=== PATIENT | female | born 1960 | race African-American/Black ===

== ENCOUNTER 2024-06-01 13:04 | Outpatient (AMB) | payer OTHER, SELFPAY ==
--- NOTE | 2024-06-01 13:10 | HO.NEPHOV ---
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 Required: No Accompanied by: Self / Same As Patient Allergies ciprofloxacin [CIPROFLOXACIN] Allergy (Severe, Verified 06/01/24 13:42) SEIZURE hydromorphone [HYDROMORPHONE] Allergy (Intermediate, Verified 06/01/24 13:42) SWELLING HANDS,THROAT aspirin [ASPIRIN] Allergy (Mild, Verified 06/01/24 13:42) NAUSEA,BLEEDING mesalamine [From Asacol] Allergy (Mild, Verified 06/01/24 13:42) HIVES morphine [Morphine] Allergy (Mild, Verified 06/01/24 13:42) HIVES Penicillins Allergy (Mild, Verified 06/01/24 13:42) HIVES codeine Allergy (Verified 06/01/24 13:46) Unknown Opioids - Morphine Analogues Allergy (Verified 06/01/24 13:46) Unknown HPI Comments Details: I had the privilege of seeing Heidi in follow-up of her chronic kidney disease and hypertension. She has a diabetic with history of hypertension. She is on Farxiga. He is not on any KELVIN inhibitor or ARB. She is known to have proteinuria. She does not have any coronary artery disease, CVA, congestive heart failure, renal artery stenosis or peripheral arterial disease. She denies any joint swellings, epistaxis, skin rashes, hematuria, edema or orthostatic symptoms. She avoids nonsteroidal anti-inflammatories and maintain good hydration. Her serum creatinine has been fairly stable lately. [facility] Medical History (Updated 06/01/24 @ 13:15 by Zackary Guido MD) Hypertension Chronic kidney disease, stage 3a Surgical History Hx of appendectomy Family History Mother Diabetes Social History Alcohol intake: never Patient Tobacco Use Status: Former Tobacco user Use of substances other than those prescribed or required for medical reasons: No Review of Systems Const All systems reviewed & are unremarkable except as noted in HPI and below Physical Exam Vital Signs: Last Vital Signs Pulse 84 06/01/24 13:40 BP 132/72 06/01/24 13:40 Pulse Ox 95 06/01/24 13:40 Oxygen Delivery Method Room Air 06/01/24 13:40 BMI result Body Mass Index 33.3 Const General: comfortable and no acute distress Orientation/consciousness: patient oriented x3 HEENT Head: Yes normocephalic Mouth: Normal oral and palatal mucosa present Eyes EOM: EOMs intact bilaterally Neck Neck: Yes supple Resp Auscultation: clear to auscultation bilaterally Cardio Jugular venous distension: no JVD Rate: regular rate GI Palpation (GI): Soft to palpation Auscultation: normal bowel sounds General: Yes no CVA tenderness Back/Spine/Pelvis Back: no CVA tenderness Skin General skin exam: no rashes or lesions noted Neuro General: patient oriented x3 and moves all extremities Extrem General: Yes no pedal edema Results Reviewed Nephrology Results: No Data to Display Assessment & Plan Assessment & Plan (1) Stage 3b chronic kidney disease: Code(s): N18.32 - Chronic kidney disease, stage 3b Category: Medical (2) Hypertension: Code(s): I10 - Essential (primary) hypertension Category: Medical Qualifiers: Hypertension type: primary hypertension Qualified Code(s): I10 - Essential (primary) hypertension (3) Secondary hyperparathyroidism (of renal origin): Code(s): N25.81 - Secondary hyperparathyroidism of renal origin Category: Medical (4) Proteinuria: Code(s): R80.9 - Proteinuria, unspecified Category: Medical Qualifiers: Proteinuria type: other Qualified Code(s): R80.8 - Other proteinuria Plan Heidi has progressive renal dysfunction with her current serum creatinine qualify her for stage III B CKD. She is not on any KELVIN inhibitor or ARB. Her blood pressure is at goal on current medications. She avoids nonsteroidal anti-inflammatories. She is tolerating Farxiga. She never had a renal biopsy about which she always had been resistant. She likely will need activated vitamin-D soon. I did not make any medication changes today. She was encouraged to maintain good hydration and avoid nonsteroidal inflammatories. All questions answered. Follow-up appointment given. Orders: Orders Protein Creatinine Ratio, Ur 3 Months I10 - Essential (primary) hypertension, N18.32 - Chronic kidney disease, stage 3b, N25.81 - Secondary hyperparathyroidism of renal origin, R80.8 - Other proteinuria Electrolytes 3 Months I10 - Essential (primary) hypertension, N18.32 - Chronic kidney disease, stage 3b, N25.81 - Secondary hyperparathyroidism of renal origin, R80.8 - Other proteinuria Blood Urea Nitrogen 3 Months I10 - Essential (primary) hypertension, N18.32 - Chronic kidney disease, stage 3b, N25.81 - Secondary hyperparathyroidism of renal origin, R80.8 - Other proteinuria Immunofixation Pnl, Serum 3 Months I10 - Essential (primary) hypertension, N18.32 - Chronic kidney disease, stage 3b, N25.81 - Secondary hyperparathyroidism of renal origin, R80.8 - Other proteinuria Parathyroid Hormone Intact 3 Months I10 - Essential (primary) hypertension, N18.32 - Chronic kidney disease, stage 3b, N25.81 - Secondary hyperparathyroidism of renal origin, R80.8 - Other proteinuria Complete Blood Count Auto Diff 3 Months I10 - Essential (primary) hypertension, N18.32 - Chronic kidney disease, stage 3b, N25.81 - Secondary hyperparathyroidism of renal origin, R80.8 - Other proteinuria Calcium 3 Months I10 - Essential (primary) hypertension, N18.32 - Chronic kidney disease, stage 3b, N25.81 - Secondary hyperparathyroidism of renal origin, R80.8 - Other proteinuria Creatinine 3 Months I10 - Essential (primary) hypertension, N18.32 - Chronic kidney disease, stage 3b, N25.81 - Secondary hyperparathyroidism of renal origin, R80.8 - Other proteinuria Coding Level of Care Code Est Pt Level 4 (46697) Diagnoses Stage 3b chronic kidney disease N18.32 Primary hypertension I10 Hypertension type: primary hypertension Secondary hyperparathyroidism (of renal origin) N25.81 Other proteinuria R80.8 Proteinuria type: other
[2024-06-01 13:40] VITALS: BP 132/72; PULSE 84; O2SAT 95; BMI 33.3
== END 2024-06-01 13:59 | disposition home or self-care (01) ==
PROVIDERS: PCP Internal Medicine; Visit Provider Internal Medicine Nephrology
DX: N18.32 Chronic kidney disease, stage 3b (principal); I10 Essential (primary) hypertension; N25.81 Secondary hyperparathyroidism of renal origin; R80.8 Other proteinuria
CPT/HCPCS: 99214

== ENCOUNTER → 2024-06-01 13:04 | Outpatient (BNVA) | payer OTHER, SELFPAY | PROVIDERS: PCP Internal Medicine; Visit Provider Internal Medicine Nephrology | DX: I12.9 Hypertensive chronic kidney disease with stage 1 through stage 4 chronic kidney disease, or unspecified chronic kidney disease (principal); N18.32 Chronic kidney disease, stage 3b; N25.81 Secondary hyperparathyroidism of renal origin; R80.8 Other proteinuria | CPT/HCPCS: 99212 ==

== ENCOUNTER 2024-09-07 13:10 | Outpatient (AMB) | payer OTHER, SELFPAY ==
[2024-09-07 13:34] VITALS: BP 130/70; PULSE 80; O2SAT 98; BMI 34.9
--- NOTE | 2024-09-07 13:34 | HO.NEPHOV_ITS ---
Vital Signs 09/07/24 13:34 Height 5 ft 4 in Weight 203 lb 8 oz BMI 34.9 BP 130/70 Blood Pressure Location Lt brachial Position Sitting Pulse 80 Pulse Source Pulse Oximeter Pulse Oximetry (%) 98 Oxygen Delivery Method Room Air Intake Visit Reasons: Continuing care- CKD- Conf Special Librarian Required: No Accompanied by: Self / Same As Patient Allergies ciprofloxacin [CIPROFLOXACIN] Allergy (Severe, Verified 09/07/24 13:36) SEIZURE hydromorphone [HYDROMORPHONE] Allergy (Intermediate, Verified 09/07/24 13:36) SWELLING HANDS,THROAT aspirin [ASPIRIN] Allergy (Mild, Verified 09/07/24 13:36) NAUSEA,BLEEDING mesalamine [From Asacol] Allergy (Mild, Verified 09/07/24 13:36) HIVES morphine [Morphine] Allergy (Mild, Verified 09/07/24 13:36) HIVES Penicillins Allergy (Mild, Verified 09/07/24 13:36) HIVES codeine Allergy (Verified 09/07/24 13:36) Unknown Opioids - Morphine Analogues Allergy (Verified 09/07/24 13:36) Unknown HPI Comments Details: Heidi was seen in follow-up of her chronic kidney disease and hypertension. She has a diabetic with history of hypertension. She is on Farxiga. He is not on any KELVIN inhibitor or ARB. She is known to have proteinuria. She does not have any coronary artery disease, CVA, congestive heart failure, renal artery stenosis or peripheral arterial disease. She denies any joint swellings, epistaxis, skin rashes, hematuria, edema or orthostatic symptoms. She avoids nonsteroidal anti-inflammatories and maintain good hydration. Her serum creatinine has been fairly stable lately FOR[facility], [facility] Medical History (Updated 06/01/24 @ 13:15 by Zackary Guido MD) Hypertension Chronic kidney disease, stage 3a Surgical History Hx of appendectomy Family History Mother Diabetes Social History Alcohol intake: never Patient Tobacco Use Status: Former Tobacco user Review of Systems Const All systems reviewed & are unremarkable except as noted in HPI and below Physical Exam Const General: comfortable and no acute distress Orientation/consciousness: patient oriented x3 HEENT Head: Yes normocephalic Mouth: Normal oral and palatal mucosa present Eyes EOM: EOMs intact bilaterally Neck Neck: Yes supple Resp Auscultation: clear to auscultation bilaterally Cardio Jugular venous distension: no JVD Rate: regular rate GI Palpation (GI): Soft to palpation Auscultation: normal bowel sounds General: Yes no CVA tenderness Back/Spine/Pelvis Back: no CVA tenderness Skin General skin exam: no rashes or lesions noted Neuro General: patient oriented x3 and moves all extremities Extrem General: Yes no pedal edema Results Reviewed Nephrology Results: No Data to Display Assessment & Plan Assessment & Plan (1) Stage 3b chronic kidney disease: Code(s): N18.32 - Chronic kidney disease, stage 3b Category: Medical (2) Hypertension: Code(s): I10 - Essential (primary) hypertension Category: Medical Qualifiers: Hypertension type: primary hypertension Qualified Code(s): I10 - Essential (primary) hypertension (3) Secondary hyperparathyroidism (of renal origin): Code(s): N25.81 - Secondary hyperparathyroidism of renal origin Category: Medical Plan Heidi has progressive renal dysfunction with her current serum creatinine qualify her for stage III B CKD. She is not on any KELVIN inhibitor or ARB. Her blood pressure is at goal on current medications. She avoids nonsteroidal anti- inflammatories. She is tolerating Farxiga. She never had a renal biopsy about which she always had been resistant. She likely will need activated vitamin-D soon. I did not make any medication changes today. She was encouraged to maintain good hydration and avoid nonsteroidal inflammatories. All questions answered. Follow-up appointment given Orders: Orders Creatinine 4 Months I10 - Essential (primary) hypertension, N18.32 - Chronic kidney disease, stage 3b, N25.81 - Secondary hyperparathyroidism of renal origin Blood Urea Nitrogen 4 Months I10 - Essential (primary) hypertension, N18.32 - Chronic kidney disease, stage 3b, N25.81 - Secondary hyperparathyroidism of renal origin Electrolytes 4 Months I10 - Essential (primary) hypertension, N18.32 - Chronic kidney disease, stage 3b, N25.81 - Secondary hyperparathyroidism of renal origin Protein Creatinine Ratio, Ur 4 Months I10 - Essential (primary) hypertension, N18.32 - Chronic kidney disease, stage 3b, N25.81 - Secondary hyperparathyroidism of renal origin Parathyroid Hormone Intact 4 Months I10 - Essential (primary) hypertension, N18.32 - Chronic kidney disease, stage 3b, N25.81 - Secondary hyperparathyroidism of renal origin Coding Level of Care Code Est Pt Level 4 (67433) Diagnoses Stage 3b chronic kidney disease N18.32 Primary hypertension I10 Hypertension type: primary hypertension Secondary hyperparathyroidism (of renal origin) N25.81
== END 2024-09-07 13:47 | disposition home or self-care (01) ==
LOC: HO.HKAS 13:10
PROVIDERS: PCP Internal Medicine; Visit Provider Internal Medicine Nephrology
DX: N18.32 Chronic kidney disease, stage 3b (principal); I10 Essential (primary) hypertension; N25.81 Secondary hyperparathyroidism of renal origin
CPT/HCPCS: 99214

== ENCOUNTER → 2024-09-07 13:10 | Outpatient (BNVA) | payer OTHER, SELFPAY | PROVIDERS: PCP Internal Medicine; Visit Provider Internal Medicine Nephrology | DX: I12.9 Hypertensive chronic kidney disease with stage 1 through stage 4 chronic kidney disease, or unspecified chronic kidney disease (principal); E11.22 Type 2 diabetes mellitus with diabetic chronic kidney disease; N18.32 Chronic kidney disease, stage 3b; N25.81 Secondary hyperparathyroidism of renal origin | CPT/HCPCS: 99212 ==

== ENCOUNTER 2025-02-22 14:01 | Outpatient (REF) | payer OTHER, SELFPAY ==
--- OUTSIDE RECORDS SUMMARY | 2025-02-22 17:19 | XMS_ITS ---
[facility] Address [address] [place] [address] Care Team Providers Care Immigration Attorney Name Role Phone Keily Samuel MD Primary Care Provider UnavailRikki Montenegro Unavailable [phone] Allergies Allergen (clinical drug ingredient) Drug/Non Drug [...] ONE TABLE T BY MOUTH EVERY DAY Oral for 30 Active Amantadine HCl 100 MG Oral for 60 Active Farxiga 5 MG Oral for 30 Unkno wn Melatonin 10 MG Oral for 30 Un known Gabapentin 300 MG TAKE ONE CAPSULE BY MOUTH TWICE A DAY Oral for 30 Active risperiDONE 2 MG TAKE ONE TABLET BY M OUTH TWICE A DAY Oral for 30 Active Tradjenta 5 MG TAKE ONE TABLET BY M OUTH EVERY DAY Oral for 30 Active Metoprolol Succinate ER 50 MG Oral for 90 Unknown Vitamin B-1 100 MG TAKE ONE TABLET BY M OUTH EVERY DAY Oral for 30 Active traZODone HCl 150 MG TAKE 1-2 TABLETS BY MOUTH AT BEDTIME, NEEDED FOR INSOMNIA Oral for 30 Active Multivitamin - TAKE ONE TABLET BY M OUTH EVERY DAY Oral for 30 Active Omeprazole 20 MG TAKE ONE CAPSULE BY MOUTH EVERY DAY Oral for 30 Active Atorvastatin Calcium 40 MG TAKE ONE TABL ET BY MOUTH EVERY DAY Oral for 30 Active Mirtazapine 7.5 MG TAKE ONE TABLET BY M OUTH EVERY DAY AT BEDTIME Oral for 30 Active Cephalexin 500 MG Oral for 10 Unknown Albuterol Sulfate HFA 108 (90 Base) MCG/ACT 1 puff as needed Inhalation every 4 hrs Active Creon 6000-21907 UNIT Oral for 30 Active Folic Acid 1 MG Oral for 30 Ac tive Metoprolol Tartrate 50 MG Oral for 90 Active Social History Tobacco Use: Social [...] 08/03/2024 Encounters Encounter Location Date Provider Diagnosis [facility] [address] 08/03/2024 Rikki Lewis Plan Of Treatment No Information Progress Notes * KIAH CalixtoHenriettaOB: (64 yo F)Acc No.[id number]:08/03/2024 Progress Notes Patient:?Heidi DUPONT Provider:?Rikki Lewis DPM :1960???Age:64 Y???Sex:Female D ate:08/03/2024 Address:[address] [place] [address], [facility] [id number] Pcp:Keily Samuel MD Subjective: * Chief Complaints: * ??? * ROS:?General/Constitutional:?Nausea?denies.?Vomiting?denies.?Hunger Thirst?denies.?Loss appetite?denies.?Chills?denies.?Fatigue?denies.?Fever?denies.?Night Sweats?denies.?Unexplained weight loss?denies.?Unexplained weight gain?denies.?HEENTM:?Dentures?denies.?Dizziness?denies.?Glasses/contacts?admits.?Retinopathy?de nies.?Blurred/double vision?denies.?TMJ?denies.?Discharge/drainage?denies.?Implants?denies.?Sore throat?denies.?Dental implants?denies.?Hard of hearing ?denies.?Difficulty chewing/swallowing/speaking?denies.?Nose bleeds?denies.?Sore mouth?denies.?Respiratory:?On Oxygen?denies.?Pneumonia/pleurisy?denies.?Bronchitis?denies.?Emphysema?denies.?C oughing?denies.?Cough blood?denies.?Shortness of breath?denies.?Wheezing?denies.?Cardiovascular:?Pacemaker?denies.?MVP?denies.?WPW?denies.?CHF?denies.?Heart attack?denies.?Septal defect?denies.?Rapid beat?denies.?Chest pain ?denies.?Atrial Fib.?denies.?Murmur/Palpitations?denies.?Gastrointestinal:?Hemorrhoids?denies.?Stomach/Abdominal pain?denies.?Dark blood stool?denies.?Irritable bowel ?denies.?Constipation?denies.?Diarrhea?denies.?Hematology:?Swelling?denies.?Clots?denies.?Varicose Veins?denies.?Bruising?denies.?Bleeding problem?denies.?Genitourinary:?Blood urine?denies.?Frequent/Painfu/urination/bladder control?denies.?Kidney stones?denies.?Infection (UTI)?denies.?Nephropathy?denies.?sex trans dis (STD)?denies.?Prostate?denies.?Musculoskeletal:?Hammertoes?denies.?Bunions?denies.?Back Pain?admits.?Muscle Cramps/ Resting?denies.?Muscle cramps / walking?denies.?Generalized aches and pains?denies.?Weakness?denies.?Integ.:?Maguire?denies.?Scars?denies.?Corns/calluses?denies.?Ingrown nails?admits.?Painful nails?denies.?Open Sores?denies.?Rashes?denies.?Neurologic:?Difficulty sleeping?denies.?Brain disorder?denies.?Numbness?denies.?Balance trouble?denies.?Confusion?denies.?Fainting/blackouts?denies.?Tingling?denies.?Tr emors?denies.? * Medical History:?Asthma, Rosie betic, Hiatal hernia, Kidney disease, Psychiatric disorder, Measles. * Family History:?Mother: dece ased, diagnosed with Diabetic - NIDDM, Unspecified essential hypertension.?Father: .? * Social History:?Tobacco Use:?Tobacco Use/Smoking?Are you a:?former smoker ?Additional Findings: Tobacco Non-User?Current non-smoker ???Drugs/Alcohol:?Drugs?Have you used drugs other than those for medical reasons in the past 12 months??No ?Alcohol Screen?Did you have a drink containing alcohol in the past year??No ?Points?0 ?Interpretation?Negative ???Miscellaneous:?Caffeine: yes, frequency:. ?Exercise: yes, walking. ?Marital status: . ?Occupation: unemployed. * Medications:?Taking Albutero l Sulfate HFA 108 (90 Base) MCG/ACT Aerosol Solution 1 puff as needed Inhalation every 4 hrs , Taking Creon [id number] UNIT Capsule Delayed Release Particles Oral , [...] Unknown Melatonin 10 MG Tablet Oral * Allergies:?[place] Aspirin, Di laudid, Ciprofloxacin, Codeine, Morphine, Penicillin. Objective: * Vitals:?Ht: 5 ft 4 in, Wt:17 0 lbs, BMI:29.18, Shoe size: 8, Ht-cm: 162.56 cm, Wt-k.11 kg. Assessment: Plan: * Treatment: * Images: * The named appointment provid er may or may not be the originator of this progress note, and it is not deemed complete until electronically signed by the appointment provider. Sign off status: Pending * Provider:?Rikki Lewis DPM Date:?2023 Generated for Tian cage/Giancarlo/Karen on:?02/22/2025 05:19 PM EDT
--- OUTSIDE RECORDS SUMMARY | 2025-02-22 17:19 | XMS_ITS | Patient Health Record ---
Author Organization [facility] Address [address] [place] [address] Care Team Providers Care Semiconductor Processing Technician Name Role Phone Keily Samuel MD Primary Care Provider Unavailab Rikki Jimenez Unavailable [phone] Black, Marylou Unavailable [phone] Allergies Allergen (clinical drug ingredient) Drug/Non Drug Allergy documented on EMR Reaction Allergy Type Onset Date Status aspirin Mercedez Aspirin Unknown Drug Allergy Act micheal hydromorphone Dilaudid Unknown Drug Allergy Act micheal ciprofloxacin Ciprofloxacin Unknown Drug Allergy Active codeine Codeine Unknown Drug Allergy Active morphine Morphine Unknown Drug Allergy Active Penicillin Unknown Drug Allergy Active Reason For Referral No Information Medications Medication SIG (Take, Route, Frequency, Duration) Notes Start Date End Date Status Multivitamin - TAKE ONE TABLET BY M OUTH EVERY DAY Oral for 30 Active amLODIPine Besylate 10 MG TAKE ONE TABLE T BY MOUTH EVERY DAY Oral for 30 Active Omeprazole 20 MG TAKE ONE CAPSULE BY MOUTH EVERY DAY Oral for 30 Active risperiDONE 2 MG TAKE ONE TABLET BY M OUTH TWICE A DAY Oral for 30 Active Tradjenta 5 MG TAKE ONE TABLET BY M OUTH EVERY DAY Oral for 30 Active Amantadine HCl 100 MG Oral for 60 Active Atorvastatin Calcium 40 MG TAKE ONE TABL ET BY MOUTH EVERY DAY Oral for 30 Active Farxiga 5 MG Oral for 30 Unkno wn Mirtazapine 7.5 MG TAKE ONE TABLET BY M OUTH EVERY DAY AT BEDTIME Oral for 30 Active Melatonin 10 MG Oral for 30 Un known Cephalexin 500 MG Oral for 10 Unknown Albuterol Sulfate HFA 108 (90 Base) MCG/ACT 1 puff as needed Inhalation every 4 hrs Active Metoprolol Succinate ER 50 MG Oral for 90 Unknown Creon [id number] UNIT Oral for 30 Active Vitamin B-1 100 MG TAKE ONE TABLET BY M OUTH EVERY DAY Oral for 30 Active Folic Acid 1 MG Oral for 30 Ac tive traZODone HCl 150 MG TAKE 1-2 TABLETS BY MOUTH AT BEDTIME, NEEDED FOR INSOMNIA Oral for 30 Active Metoprolol Tartrate 50 MG Oral for 90 Active Gabapentin 300 MG TAKE ONE CAPSULE BY MOUTH TWICE A DAY Oral for 30 Active Social History Tobacco Use: Social History Observation Description Date Details (start date - stop date) Former Smoker NA - NA Tobacco Use/Smoking Question Answer Notes Are you a: former smoker Additional Findings: Tobacco Non-User Current no n-smoker Alcohol Screen Question Answer Notes Did you have a drink containing alcohol in the p ast year? No Points 0 Interpretation Negative Encounters Encounter Location Date Provider Diagnosis [facility] [address] 04/15/2024 [facility] [address] [facility] [address] 04/19/2024 [facility] [address] 04/27/2024 Rikki Lewis [facility] [address] 06/28/2024 Rikki Lewis Plan Of Treatment No Information Insurance Providers Payer Name Payer Address Payer Phone Subscriber Number Group Number Insured Name Patient Relationship to Insured Coverage Start Date Coverage End Date [facility] [employer] Claims [address] [place] [id number] Heidi Latif Self - patient is the insured Medical (General) History Medical History History ICD Code asthma Diabetic Hiatal hernia Kidney disease Psychiatric disorder Measles
--- OUTSIDE RECORDS SUMMARY | 2025-02-22 17:20 | XMS_ITS | Clinical Summary ---
Author Organization [facility] Address [address] [place] [address] Phone Care Team Providers Care Research Chemical Engineer Name Role Phone Physician, Pcp Unknown Primary Care Provider Jeaneth vailable Allergies Active Allergy Reactions Criticality Noted Date Comments Morphine (Pf) Rash Medium 11/03/2024 Penicillins Rash Medium 11/03/2024 Medications amantadine (SYMMETREL) 100 mg capsule Take 1 capsule (100 mg total) by mouth every other day. Active folic acid (FOLVITE) 1 mg tablet Take 1 tablet (1,000 mcg total) by mouth 1 (one) time each day. Active Creon 6,000-19,000 -30,000 unit capsule Take 2 capsules (12,000 Units total) by mouth 3 (three) times a day with meals. Active melatonin 10 mg tablet Take 1 tablet (10 mg total) by mouth at bedtime. 10/20/2024 Active metoprolol succinate (TOPROL-XL) 50 mg 24 hr tablet Take 1 tablet (50 mg total) by mouth 1 (one) time each day. 10/09/2024 Active mirtazapine (REMERON) 15 mg tablet Take 0.5 tablets (7.5 mg total) by mouth at bedtime. 11/21/2022 Active multivitamin tablet Take 1 tablet by mouth 1 (one) time each day. 10/09/2024 Active omeprazole (PriLOSEC) [address] capsule Take 1 capsule (20 mg total) by mouth 1 (one) time each day. Active risperiDONE (RisperDAL) 2 mg tablet Take 1 tablet (2 mg total) by mouth 2 (two) times a day. Active thiamine mononitrate, vit B1, 100 mg tablet Take 1 tablet (100 mg total) by mouth 1 (one) time each day. 10/09/2024 Active traZODone (DESYREL) 150 mg tablet Take 1 tablet (150 mg total) by mouth at bedtime. Active gabapentin (NEURONTIN) 300 mg capsule Take 1 capsule (300 mg total) by mouth 2 (two) times a day. 10/20/2024 Active aspirin 81 mg EC tablet Take 1 tablet (81 mg total) by mouth 1 (one) time each day. 11/10/2024 11/10/19 26 Active insulin glargine (LANTUS) 100 unit/mL injection Inject 30 Units under the skin at bedtime. 11/09/2024 11/09/20 25 Active Admelog U-100 insulin lispro 100 unit/mL injection Inject 7 Units under the skin 3 (three) times a day with meals. -Administer within 15 minutes of a meal 11/09/2024 Active Admelog U-100 insulin lispro 100 unit/mL injection Inject 2-12 Units under the skin 3 (three) times a day before meals. -Administer within 15 minutes of a meal 11/09/2024 11/09/20 25 Active Active Problems No known active problems Resolved Problems Problem Noted Date Diagnosed Date Resolved Date Cerebrovascular accident (CV A), unspecified mechanism ([facility] V24, [facility] V28) 11/06/2024 TIA (transient ischemic attack) 11/03/2024 11/09/2024 Encounters Date Type Department Care Team Description 11/26/2024 Lab Requisition [facility] - Main Lab [address] [facility] [place] [address] Winsome Asher MD Cerebral infarction, unspecified ([facility] V24, [facility] V28) from Last 3 Months Medical History Medical History Date Comments HTN (hypertension) DM (diabetes mellitus) ([facility] V24, [facility] V28 ) Hyperlipidemia Asthma Asthma Depression Social History Tobacco Use Types Packs/Day Years Used Date Smoking Tobacco: Never Smokeless Tobacco: Current Tobacco Cessation:Ready to Q uit: Not Asked; Counseling Given: Not Answered Alcohol Use Standard Drinks/Week Comments Never 0 (1 standard drink = 0.6 oz pur e alcohol) Interpersonal Safety Answer Date Record ed Physical Abuse 11/04/2024 Verbal Abuse 11/04/2024 Comments Unknown Sex and Gender Information Value Date Recorded Sex Assigned at Not on file Legal Sex Female 8:37 PM EST Gender Identity Not on file Sexual Orientation Not on file Obstetrics History Last Filed Vital Signs Vital Sign Reading Time Taken Comments Blood Pressure 159/87 11/09/2024 8:12 AM EST Pulse 83 11/09/2024 8:12 AM EST Temperature 36.3 ??C (97.3 ??F) 11/09/2024 8:12 AM ES T Respiratory Rate 15 11/09/2024 8:12 AM EST Oxygen Saturation 97% 11/09/2024 8:12 AM EST Inhaled Oxygen Concentration - - Weight 77.1 kg (170 lb) 11/03/2024 1:52 PM EST Height 162.6 cm (5' 4 ) 11/03/2024 1:52 PM EST Body Mass Index 29.18 11/03/2024 1:52 PM EST Plan of Treatment Health Maintenance Due Date Last Done Comments Breast Cancer Screening 1961 Diabetes: Annual Foot Exam 1971 Diabetes: Annual Retina Eye Exam 1971 Pneumococcal Vaccine: 50+ Years (1 of 2 - PCV) 1980 Pneumococcal Vaccine: Pediatrics (0 to 5 Years) and At-Risk Patients (6 to 64 Years) (1 of 2 - PCV) 1980 Cervical Cancer Screening: Pap Smear 1982 Zoster Vaccines (1 of 2) 2011 RSV Immunization Adult Patients (1 - Risk 60-74 years 1-dose series) 2021 Colorectal Cancer Screening: Colonoscopy 10/12/2022 Depression Screening 10/12/2022 HIV Screening 10/12/2022 Hepatitis C Screening 10/12/2022 Medicare Annual Wellness Visit 10/12/2022 Social Influencers of Health Screening 10/12/2022 COVID-19 Vaccine ( season) 2024 11/09/2021, 03/24/2021, 03/03/2021 Diabetes: Annual Urine Albumin-Creatinine Ratio (uACR) 11/03/2024 Diabetes: Blood Sugar Control Test (HGBA1C) 05/04/2025 11/03/2024 Influenza Vaccine (Season Ended) 2025 11/18/2023, 09/17/2022, 10/23/2021, Additional history exists Diabetes: Annual GFR (Glomerular Filtration Rate) 11/22/2025 11/22/2024, 11/15/2024, 11/11/2024, Additional history exists Hypertension/CHF/CAD Annual BMP Blood Test 11/22/2025 11/22/2024, 11/15/2024, 11/11/2024, Additional history exists Cholesterol Screening (Lipid Panel) 11/03/2029 11/03/2024 DTaP,Tdap,and Td Vaccines (2 - Td or Tdap) 12/06/2029 12/06/2019 HIB Vaccines Aged Out No longer eligi ble based on patient's age to complete this topic HPV Vaccines Aged Out No longer eligi ble based on patient's age to complete this topic Hepatitis A Vaccines Aged Out No long er eligible based on patient's age to complete this topic Hepatitis B Vaccines Aged Out No long er eligible based on patient's age to complete this topic IPV Vaccines Aged Out No longer eligi ble based on patient's age to complete this topic MMR Vaccines Aged Out No longer eligi ble based on patient's age to complete this topic Meningococcal ACWY Vaccine Aged Out N o longer eligible based on patient's age to complete this topic Meningococcal B Vaccine Aged Out No l onger eligible based on patient's age to complete this topic RSV Immunization Patients Under 20 months Aged Out No longer eligible based on patient's age to complete this topic Varicella Vaccines Aged Out No longer eligible based on patient's age to complete this topic Procedures Procedure Name Priority Date/Time Associated Diagnosis Comments BASIC METABOLIC PANEL Routine 11/22/2024 6:48 AM EST Cerebral infarction, unspecified (CMS/HCC) HEMOGLOBIN A1C Add-On 11/03/2024 2:15 PM EST LIPID PANEL WITH REFLEX TO DIRECT LDL Add-On 11/03/2024 2:15 PM EST from Last 3 Months or Most Recently Relevant to Health Maintenance Results * (ABNORMAL) Basic metabolic panel (11/22/2024 6:48 AM EST) Sodium 140 133 - 145 mmol/L LAB CHEMISTRY METHOD 11/22/2024 3:01 PM [facility] Potassium 4.4 3.5 - 5.5 mmol/L LAB CHEMISTRY METHOD 11/22/2024 3:01 PM [facility] Chloride 112(H) 96 - 110 mmol/L LAB CHEMISTRY METHOD 11/22/2024 3:01 PM [facility] CO2 22 21 - 32 mmol/L LAB CHEMISTRY METHOD 11/22/2024 3:01 PM [facility] Anion Gap 6 3 - 11 LAB CHEMISTRY METHOD 11/22/2024 3:01 PM [facility] Glucose 182(H) 70 - 100 mg/dL LAB CHEMISTRY METHOD 11/22/2024 3:01 PM [facility] BUN 33(H) 5 - 25 mg/dL LAB CHEMISTRY METHOD 11/22/2024 3:01 PM [facility] Creatinine 1.99(H) 0.50 - 1.10 mg/dL LAB CHEMISTRY METHOD 11/22/2024 3:01 PM [facility] eGFR 28(L) >=60 mL/min/1. 73m2 LAB CHEMISTRY METHOD 11/22/2024 3:01 PM [facility] Comment:Calculation based on the??Chronic Kidney Disease Epidemiology Collaboration (CKD-EPI) equation refit??without adjustment for race. BUN/Creatinine Ratio 16.6 LAB CHEMISTRY METHOD 11/22/2024 3:01 PM [facility] Calcium 7.8(L) 8.5 - 10.5 mg/dL LAB CHEMISTRY METHOD 11/22/2024 3:01 PM [facility] Blood Venous blood specimen / Unknown Venipuncture / Unknown 11/22/2024 6:48 AM EST 11/22/2024 10:18 AM EST us Winsome Asher MD LAB BLOOD ORDERABLES Final Resul t [facility] [address] [place] [address], * (ABNORMAL) Lipid panel with reflex to direct LDL (11/03/2024 2:15 PM EST) Cholesterol 172 0 - 200 mg/dL LAB CHEMISTRY METHOD 11/03/2024 7:42 PM EST [facility] Triglycerides 320(H) 0 - 150 mg/dL LAB CHEMISTRY METHOD 11/03/2024 7:42 PM EST [facility] HDL 41 >=40 mg/dL LAB CHEMISTRY METHOD 11/03/2024 7:42 PM EST [facility] LDL Calculated 67 0 - 100 mg/dL LAB CHEMISTRY METHOD 11/03/2024 7:42 PM EST [facility] VLDL Cholesterol Jhon 64 mg/dL LAB CHEMISTRY METHOD 11/03/2024 7:42 PM EST [facility] Non HDL Chol. (LDL+VLDL) 131 <145 mg/dL LAB CHEMISTRY METHOD 11/03/2024 7:42 PM EST [facility] Chol/HDL Ratio 4.2 0.0 - 4.4 LAB CHEMISTRY METHOD 11/03/2024 7:42 PM EST [facility] Blood Venous blood specimen / Unknown Venipuncture / Unknown 11/03/2024 2:15 PM EST 11/03/2024 2:51 PM EST us Alexander Haque DO LAB BLOOD ORDERABLES Final R esult [facility] [address] [place] [address], [place] [phone] * (ABNORMAL) Hemoglobin A1c (11/03/2024 2:15 PM EST) Hemoglobin A1C 12.4(H) <6.5 % LAB CHEMISTRY METHOD 11/04/2024 2:10 PM EST [facility] Mean Bld Glu Estim. 309 mg/dL LAB CHEMISTRY METHOD 11/04/2024 2:10 PM EST [facility] Blood Venous blood specimen / Unknown Venipuncture / Unknown 11/03/2024 2:15 PM EST 11/03/2024 2:51 PM EST us Mando GE LAB BLOOD ORDERABLES Damaris mitchell Result [facility] [address] [place] [address], from Last 3 Months or Most Recently Relevant to Health Maintenance Insurance [facility] [place] MEDICARE Member Subscriber Plan / Payer (Ef fective 2019-Present) Name:Calixto Latifise Perla Relation to Subscriber:Self Name:Heidi Latif Payer ID:[id number] Group ID:[id number] Type:Not on file Address: [place] [address] [address] [phone] Advance Directives Documents on File Type Date Recorded Patient Sap Architect Expl anation Health Care Decision (hx) 07/22/2016 AD WINSTON DIRECTIVE Health Care Decision (hx) 07/22/2016 AD WINSTON DIRECTIVE Health Care Decision (hx) 07/22/2016 AD WINSTON DIRECTIVE * Full Code - Default (Latest Code Status on File) Date Activated Date Inactivated Comments 11/03/2024 5:50 PM 11/09/2024 4:10 PM This is or jamie is used when code status has not been discussed with the patient, or code status is otherwise unknown/unconfirmed To update the patient's code status, place a code status order. Do not modify or discontinue any currently active code status orders. Healthcare Agents on File Name Relationship Healthcare Agent Relationshi p Communication Anjum Villarreal Spouse Health Care Agent Care Teams Research Chemical Engineer Relationship Specialty Start Date End Date Physician, Pcp Unknown PCP - General 11/03/24
--- OUTSIDE RECORDS SUMMARY | 2025-02-22 17:20 | XMS_ITS | Patient Health Record ---
Author Organization [facility] Address [address] [place] [address] Support Name Relationship Address Phone RUTH DUPONT Guarantor Unknown [phone] Reason For Referral No Information Medications Medication SIG (Take, Route, Fr equency, Duration) Notes Start Date End Date Status Metoprolol Tartrate ORAL for -3 [facility] 11/07/2011 Active Vagifem 10MCG 1 Vaginal TWICE A WEEK for -3 [facility] 2011 Active Omeprazole 20MG ORAL for -3 [facility] 11/07/2011 A ctive Tab-A-Caren ORAL for -3 [facility] 11/07/2011 Active Problems Problem Type SNOMED Code ICD Code Onset Dates Problem Status W/U Status Risk Notes Problem Candidal vulvovaginitis (21322614) Candidiasis of vulva and vagina (112.1) Active confirmed Diag Problem 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 Major Problem Hyperlipidemia (03241930) Other and unspecified hyperlipidemia (272.4) Active confirmed Major Problem Essential hypertension (20130629) Unspecified essential hypertension (401.9) Active confirmed Major Problem Asthma (disorder) (134103108) Asthma, unspecified, unspecified status (493.90) Active confirmed Major Problem Menopausal symptom (65584739) Symptomatic menopausal or female climacteric states (627.2) Active confirmed Major Problem Gynecological examination normal (513526928245354) Routine gynecological examination (V72.31) Active confirmed Major Problem Screening for malignant neoplasm of colon (626137669) Special screening for malignant neoplasms, colon (V76.51) Active confirmed Major Plan Of Treatment No Information Insurance Providers Payer Name Payer Address Payer Phone Subscriber Number Group Number Insured Name Patient Relationship to Insured Coverage Start Date Coverage End Date MEDICARE [address] [facility] [place] [id number] RUTH DUPONT Self - patient is the insured
--- OUTSIDE RECORDS SUMMARY | 2025-02-22 17:20 | XMS_ITS ---
Author Organization [facility] Address [address] [place] [address] Care Team Providers Care Mechanical Commissioning Engineer Name Role Phone Lizzie RIVAS, Keily Primary Care Provider Unavailab Rikki Jimenez Unavailable [phone] Marylou Paz [phone] Encounters Encounter Location Date Provider Diagnosis [address] [address] 07/20/2024 Marylou Paz Plan Of Treatment No Information Progress Notes * Marry DUPONTOB: (64 yo F)Acc No.[id number]:07/20/2024 Progress Notes Patient:?Heidi DUPONT Provider:?Marylou Paz DPM :1960???Age:64 Y???Sex:Female D ate:07/20/2024 Address:[address], [place], [place] Pcp:Keily Samuel MD Subjective: * Chief Complaints: * ??? * Medical History:? Objective: * Vitals:? Assessment: Plan: * Treatment: * Images: * The named appointment provid er may or may not be the originator of this progress note, and it is not deemed complete until electronically signed by the appointment provider. Sign off status: Pending * Provider:?Marylou Paz DPM Date:?2023 Generated for Mingoi niles/Giancarlo/eTransmitting on:?02/22/2025 05:19 PM EDT
--- OUTSIDE RECORDS SUMMARY | 2025-02-22 17:20 | XMS_ITS | Encounter Summary ---
Author Organization [facility] Address [address] [place] [address] Care Team Providers Care Oxygen Plant Operator Name Role Phone Physician, Pcp Unknown Primary Care Provider Jeaneth vailable Encounter Details Date Type Department Care Team (Latest Contact Info) Description 11/11/2024 Lab Requisition [facility] - Main Lab [address] [facility] [place] [phone] Winsome Asher MD [address] [place] [address] Other cerebrovascular disease Social History Tobacco Use Types Packs/Day Years Used Date Smoking Tobacco: Never Smokeless Tobacco: Current Alcohol Use Standard Drinks/Week Comments Never 0 (1 standard drink = 0.6 oz pur e alcohol) Interpersonal Safety Answer Date Record ed Physical Abuse 11/04/2024 Verbal Abuse 11/04/2024 Comments Unknown Sex and Gender Information Value Date Recorded Sex Assigned at Not on file Legal Sex Female 8:37 PM EST Gender Identity Not on file Sexual Orientation Not on file documented as of this encounter Plan of Treatment Not on file documented as of this encounter Procedures Procedure Name Priority Date/Time Associated Diagnosis Comments COMPLETE BLOOD COUNT Routine 11/11/2024 6:29 AM EST Other cerebrovascular disease BASIC METABOLIC PANEL Routine 11/11/2024 6:29 AM EST Other cerebrovascular disease documented in this encounter Results * (ABNORMAL) Basic metabolic panel (11/11/2024 6:29 AM EST) Sodium 140 133 - 145 mmol/L LAB CHEMISTRY METHOD 11/11/2024 8:52 AM [facility] Potassium 4.8 3.5 - 5.5 mmol/L LAB CHEMISTRY METHOD 11/11/2024 8:52 AM [facility] Chloride 113(H) 96 - 110 mmol/L LAB CHEMISTRY METHOD 11/11/2024 8:52 AM [facility] CO2 24 21 - 32 mmol/L LAB CHEMISTRY METHOD 11/11/2024 8:52 AM [facility] Anion Gap 3 3 - 11 LAB CHEMISTRY METHOD 11/11/2024 8:52 AM [facility] Glucose 95 70 - 100 mg/dL LAB CHEMISTRY METHOD 11/11/2024 8:52 AM [facility] BUN 25 5 - 25 mg/dL LAB CHEMISTRY METHOD 11/11/2024 8:52 AM [facility] Creatinine 1.64(H) 0.50 - 1.10 mg/dL LAB CHEMISTRY METHOD 11/11/2024 8:52 AM [facility] eGFR 35(L) >=60 mL/min/1. 73m2 LAB CHEMISTRY METHOD 11/11/2024 8:52 AM [facility] Comment:Calculation based on the??Chronic Kidney Disease Epidemiology Collaboration (CKD-EPI) equation refit??without adjustment for race. BUN/Creatinine Ratio 15.2 LAB CHEMISTRY METHOD 11/11/2024 8:52 AM [facility] Calcium 8.0(L) 8.5 - 10.5 mg/dL LAB CHEMISTRY METHOD 11/11/2024 8:52 AM [facility] Blood Venous blood specimen / Unknown Venipuncture / Unknown 11/11/2024 6:29 AM EST 11/11/2024 8:17 AM EST us Winsome Asher MD LAB BLOOD ORDERABLES Final Resul t [facility] [address] [place] [address], * (ABNORMAL) Complete blood count (11/11/2024 6:29 AM EST) [facility] Signature WBC 5.7 4.8 - 10.8 K/mcL LAB HEMETOLOGY METHOD 11/11/2024 8:30 AM EST [facility] RBC 3.20(L) 3.80 - 4.80 M/mcL LAB HEMETOLOGY METHOD 11/11/2024 8:30 AM [facility] Hemoglobin 9.6(L) 11.5 - 16.0 g/dL LAB HEMETOLOGY METHOD 11/11/2024 8:30 AM [facility] Hematocrit 29.8(L) 35.0 - 47.0 % LAB HEMETOLOGY METHOD 11/11/2024 8:30 AM [facility] MCV 94.3 79.0 - 98.0 FL LAB HEMETOLOGY METHOD 11/11/2024 8:30 AM [facility] MCH 30.4 27.0 - 32.0 pcg LAB HEMETOLOGY METHOD 11/11/2024 8:30 AM [facility] MCHC 32.2 32.0 - 37.0 g/dL LAB HEMETOLOGY METHOD 11/11/2024 8:30 AM [facility] RDW 13.4 11.0 - 15.0 % LAB HEMETOLOGY METHOD 11/11/2024 8:30 AM [facility] Platelets 157 130 - 400 K/mcL LAB HEMETOLOGY METHOD 11/11/2024 8:30 AM [facility] MPV 12.6(H) 7.0 - 11.0 FL LAB HEMETOLOGY METHOD 11/11/2024 8:30 AM [facility] NRBC 0.4 <1.0 % LAB HEMETOLOGY METHOD 11/11/2024 8:30 AM EST [facility] NRBC Absolute 0.02 <0.10 K/mcL LAB HEMETOLOGY METHOD 11/11/2024 8:30 AM EST [facility] Blood Venous blood specimen / Unknown Venipuncture / Unknown 11/11/2024 6:29 AM EST 11/11/2024 8:17 AM EST us Winsome Asher MD LAB BLOOD ORDERABLES Final Resul t [facility] [address] [place] [address], documented in this encounter Visit Diagnoses Diagnosis Other cerebrovascular disease documented in this encounter Care Teams Oxygen Plant Operator Relationship Specialty Start Date End Date Physician, Pcp Unknown PCP - General 11/03/24 documented as of this encounter
--- OUTSIDE RECORDS SUMMARY | 2025-02-22 17:20 | XMS_ITS | Encounter Summary ---
Author Organization [facility] Address [address] [place] [address] Care Team Providers Care General Cargo Clerk Name Role Phone Physician, Pcp Unknown Primary Care Provider Jeaneth vailable Encounter Details Date Type Department Care Team (Late st Contact Info) Description 11/19/2024 Lab Requisition [facility] - Main Lab [address] [facility] [place] [phone] Winsome Asher MD [address] [place] [address] Cerebral infarction, unspecified (CMS/HCC V24, CMS/HCC V28) Social History Tobacco Use Types Packs/Day Years [...] Associated Diagnosis Comments COMPLETE BLOOD COUNT Routine 11/22/2024 6:48 AM EST Cerebral infarction, unspecified (CMS/HCC) BASIC METABOLIC PANEL Routine 11/22/2024 6:48 AM EST Cerebral infarction, unspecified (CMS/HCC) documented in this encounter Results * (ABNORMAL) Basic metabolic panel (11/22/2024 6:48 AM EST) Sodium 140 133 - 145 mmol/L LAB CHEMISTRY METHOD 11/22/2024 3:01 PM [facility] Potassium 4.4 3.5 - 5.5 mmol/L LAB CHEMISTRY METHOD 11/22/2024 3:01 PM [facility] Chloride 112(H) 96 - 110 mmol/L LAB CHEMISTRY METHOD 11/22/2024 3:01 PM [facility] CO2 22 21 - 32 mmol/L LAB CHEMISTRY METHOD 11/22/2024 3:01 PM [facility] Anion Gap 6 3 - 11 LAB CHEMISTRY METHOD 11/22/2024 3:01 PM [facility] Glucose 182(H) 70 - 100 mg/dL LAB CHEMISTRY METHOD 11/22/2024 3:01 PM [facility] BUN 33(H) 5 - 25 mg/dL LAB CHEMISTRY METHOD 11/22/2024 3:01 PM [facility] Creatinine 1.99(H) 0.50 - 1.10 mg/dL LAB CHEMISTRY METHOD 11/22/2024 3:01 PM [facility] eGFR 28(L) >=60 mL/min/1. 73m2 LAB CHEMISTRY METHOD 11/22/2024 3:01 PM [facility] Comment:Calculation based on the??Chronic Kidney Disease Epidemiology Collaboration (CKD-EPI) equation refit??without adjustment for race. BUN/Creatinine Ratio 16.6 LAB CHEMISTRY METHOD 11/22/2024 3:01 PM [facility] Calcium 7.8(L) 8.5 - 10.5 mg/dL LAB CHEMISTRY METHOD 11/22/2024 3:01 PM [facility] Blood Venous blood specimen / Unknown Venipuncture / Unknown 11/22/2024 6:48 AM EST 11/22/2024 10:18 AM EST us Winsome Asher MD LAB BLOOD ORDERABLES Final Resul t [facility] [address] [place] [address], [place] [phone] * (ABNORMAL) Complete blood count (11/22/2024 6:48 AM EST) WBC 5.2 4.8 - 10.8 K/mcL LAB HEMETOLOGY METHOD 11/22/2024 2:21 PM [facility] RBC 3.00(L) 3.80 - 4.80 M/mcL LAB HEMETOLOGY METHOD 11/22/2024 2:21 PM [facility] Hemoglobin 9.2(L) 11.5 - 16.0 g/dL LAB HEMETOLOGY METHOD 11/22/2024 2:21 PM [facility] Hematocrit 29.1(L) 35.0 - 47.0 % LAB HEMETOLOGY METHOD 11/22/2024 2:21 PM [facility] MCV 96.4 79.0 - 98.0 FL LAB HEMETOLOGY METHOD 11/22/2024 2:21 PM [facility] MCH 30.5 27.0 - 32.0 pcg LAB HEMETOLOGY METHOD 11/22/2024 2:21 PM [facility] MCHC 31.6(L) 32.0 - 37.0 g/dL LAB HEMETOLOGY METHOD 11/22/2024 2:21 PM [facility] RDW 14.0 11.0 - 15.0 % LAB HEMETOLOGY METHOD 11/22/2024 2:21 PM [facility] Platelets 155 130 - 400 K/mcL LAB HEMETOLOGY METHOD 11/22/2024 2:21 PM [facility] MPV 11.9(H) 7.0 - 11.0 FL LAB HEMETOLOGY METHOD 11/22/2024 2:[address] [facility] NRBC 0.4 <1.0 % LAB HEMETOLOGY METHOD 11/22/2024 2:[address] [facility] NRBC Absolute 0.02 <0.10 K/mcL LAB HEMETOLOGY METHOD 11/22/2024 2:[address] [facility] Blood Venous blood specimen / Unknown Venipuncture / Unknown 11/22/2024 6:48 AM EST 11/22/2024 10:18 AM EST us Winsome Asher MD LAB BLOOD ORDERABLES Final Resul t [facility] [address] [place] [address], documented in this encounter Visit Diagnoses Diagnosis Cerebral infarction, unspecified (CMS/HCC V24, CMS/HCC V28) documented in this encounter Care Teams General Cargo Clerk Relationship Specialty Start Date End Date Physician, Pcp Unknown PCP - General 11/03/24 documented as of this encounter
--- OUTSIDE RECORDS SUMMARY | 2025-02-22 17:20 | XMS_ITS | Encounter Summary ---
[facility] Address [address] [place] [address] Care Team Providers Care Foster Care Social Worker Name Role Phone Physician, Pcp Unknown Primary Care Provider Jeaneth vailable Encounter Details Date Type Department Care Team (Late st Contact Info) Description 11/15/2024 Lab Requisition [facility] - Main Lab [address] [facility] [place] [phone] Winsome Asher MD [address] [place] [address] Cerebral infarction, unspecified (CMS/HCC V24, CMS/HCC V28) [...] Associated Diagnosis Comments COMPLETE BLOOD COUNT Routine 11/15/2024 9:13 AM EST Cerebral infarction, unspecified (CMS/HCC) BASIC METABOLIC PANEL Routine 11/15/2024 9:13 AM EST Cerebral infarction, unspecified (CMS/HCC) documented in this encounter Results * (ABNORMAL) Basic metabolic panel (11/15/2024 9:13 AM EST) Sodium 140 133 - 145 mmol/L LAB CHEMISTRY METHOD 11/15/2024 2:57 PM [facility] Potassium 4.5 3.5 - 5.5 mmol/L LAB CHEMISTRY METHOD 11/15/2024 2:57 PM [facility] Chloride 113(H) 96 - 110 mmol/L LAB CHEMISTRY METHOD 11/15/2024 2:57 PM [facility] CO2 22 21 - 32 mmol/L LAB CHEMISTRY METHOD 11/15/2024 2:57 PM [facility] Anion Gap 5 3 - 11 LAB CHEMISTRY METHOD 11/15/2024 2:57 PM [facility] Glucose 146(H) 70 - 100 mg/dL LAB CHEMISTRY METHOD 11/15/2024 2:57 PM [facility] BUN 27(H) 5 - 25 mg/dL LAB CHEMISTRY METHOD 11/15/2024 2:57 PM [facility] Creatinine 1.59(H) 0.50 - 1.10 mg/dL LAB CHEMISTRY METHOD 11/15/2024 2:57 PM [facility] eGFR 36(L) >=60 mL/min/1. 73m2 LAB CHEMISTRY METHOD 11/15/2024 2:57 PM [facility] Comment:Calculation based on the??Chronic Kidney Disease Epidemiology Collaboration (CKD-EPI) equation refit??without adjustment for race. BUN/Creatinine Ratio 17.0 LAB CHEMISTRY METHOD 11/15/2024 2:57 PM [facility] Calcium 8.2(L) 8.5 - 10.5 mg/dL LAB CHEMISTRY METHOD 11/15/2024 2:57 PM [facility] Blood Venous blood specimen / Unknown 11/15/2024 9:13 AM EST 11/15/2024 1:07 PM EST us Winsome Asher MD LAB BLOOD ORDERABLES Final Resul t [facility] [address] [place] [address], * (ABNORMAL) Complete blood count (11/15/2024 9:13 AM EST) WBC 4.6(L) 4.8 - 10.8 K/mcL LAB HEMETOLOGY METHOD 11/15/2024 2:10 PM EST [facility] RBC 3.10(L) 3.80 - 4.80 M/mcL LAB HEMETOLOGY METHOD 11/15/2024 2:10 PM EST [facility] Hemoglobin 9.4(L) 11.5 - 16.0 g/dL LAB HEMETOLOGY METHOD 11/15/2024 2:10 PM [facility] Hematocrit 29.6(L) 35.0 - 47.0 % LAB HEMETOLOGY METHOD 11/15/2024 2:10 PM EST [facility] MCV 94.9 79.0 - 98.0 FL LAB HEMETOLOGY METHOD 11/15/2024 2:10 PM EST [facility] MCH 30.1 27.0 - 32.0 pcg LAB HEMETOLOGY METHOD 11/15/2024 2:10 PM EST [facility] MCHC 31.8(L) 32.0 - 37.0 g/dL LAB HEMETOLOGY METHOD 11/15/2024 2:10 PM EST [facility] RDW 13.7 11.0 - 15.0 % LAB HEMETOLOGY METHOD 11/15/2024 2:10 PM [facility] Platelets 174 130 - 400 K/mcL LAB HEMETOLOGY METHOD 11/15/2024 2:10 PM [facility] MPV 12.8(H) 7.0 - 11.0 FL LAB HEMETOLOGY METHOD 11/15/2024 2:10 PM EST [facility] NRBC 0.0 <1.0 % LAB HEMETOLOGY METHOD 11/15/2024 2:10 PM EST [facility] NRBC Absolute 0.00 <0.10 K/mcL LAB HEMETOLOGY METHOD 11/15/2024 2:10 PM EST [facility] Blood Venous blood specimen / Unknown Venipuncture / Unknown 11/15/2024 9:13 AM EST 11/15/2024 1:07 PM EST us Winsome Asher MD LAB BLOOD ORDERABLES Final Resul t [facility] [address] [place] [address], documented in this encounter Visit Diagnoses Diagnosis Cerebral infarction, unspecified (CMS/HCC V24, CMS/HCC V28) documented in this encounter Care Teams Foster Care Social Worker Relationship Specialty Start Date End Date Physician, Pcp Unknown PCP - General 11/03/24 documented as of this encounter
--- OUTSIDE RECORDS SUMMARY | 2025-02-22 17:20 | XMS_ITS | Encounter Summary ---
Author Organization [facility] Address [address] [place] [address] Care Team Providers Care Molder Hand Name Role Phone Physician, Pcp Unknown Primary Care Provider Jeaneth vailable Encounter Details Date Type Department Care Team (Late st Contact Info) Description 11/26/2024 Lab Requisition [facility] - Main Lab [address] [facility] [place] [address] Winsome Asher MD [address] [place] [address] Cerebral infarction, unspecified (CMS/HCC V24, CMS/HCC V28) [...] on file documented as of this encounter Visit Diagnoses Diagnosis Cerebral infarction, unspecified (CMS/HCC V24, CMS/HCC V28) documented in this encounter Care Teams Molder Hand Relationship Specialty Start Date End Date Physician, Pcp Unknown PCP - General 11/03/24 documented as of this encounter
--- OUTSIDE RECORDS SUMMARY | 2025-02-22 17:20 | XMS_ITS ---
Author Organization [facility] Care Team Providers Care Twill Cutter Name Role Phone Diana Kc Unavailable Unavailable Rosa M Thornton Unavailable Unavailable Winsome Asher Unavailable Unavailable Allyson Reid Unavailable Unavailable Jayesh Delcid Unavailable Unavailable Nat Puckett Unavailable Unavailable Allergies and adverse reactions Code CodeSystem Substance Reaction Severity StartDate Concern Status 7984 RXNORM Penicillin Unknown 09/19/2022 active 7052 RXNORM Morphine Unknown 09/19/2022 active 3423 RXNORM HYDROmorphone Unknown 09/19/2022 active 2670 RXNORM Codeine Unknown 09/19/2022 active 2551 RXNORM Ciprofloxacin Unknown 09/19/2022 active 1191 RXNORM Aspirin Unknown 09/19/2022 active Care Team Name Role Address Phone Organization Dates Winsome Asher PCP [address] [facility] [address], [place], [address], [place] (Office): [facility] 09/19/2022 - 09/24/2022 Diana Kc Attending Physician [address] [place], [address], [place] (Office): [facility] 09/19/2022 - 09/24/2022 Rosa M Thornton Attending Physician [address] [place] [place] [address] [address], [place], [address], [place] (Office): [facility] 09/19/2022 - 09/24/2022 Allyson Reid Attending Physician [address], [place], [address], [place] (Office): [facility] 09/19/2022 - 09/24/2022 Jayesh Delcid Attending Physician [address] [facility], [place], [address], [place] (Office): [facility] 09/19/2022 - 09/24/2022 Nat Puckett Attending Physician [address] [place], [address], [place] (Office): [facility] 09/19/2022 - 09/24/2022 Immunizations Immunization Status Vaccine Details Vaccine Code CodeSystem Asif e Notes SARS-COV-2 (COVID-19) completed SARS-COV-2 (COVID-19) vaccine, D614, prefusion spike recombinant protein subunit (CoV2 preS dTM), AS03 adjuvant added, preservative free, 5mcg/0.5mL dose Step 2 of Multi-step with next step required 225 CVX created date: 09/23/2022 administered date: 03/24/2021 SARS-COV-2 (COVID-19) completed SARS-COV-2 (COVID-19) vaccine, D614, prefusion spike recombinant protein subunit (CoV2 preS dTM), AS03 adjuvant added, preservative free, 5mcg/0.5mL dose Step 1 of Multi-step with next step required 225 CVX created date: 09/23/2022 administered date: 03/03/2021 SARS-COV-2 (COVID-19 BOOSTER) completed SARS-COV-2 (COVID-19) vaccine, D614, prefusion spike recombinant protein subunit (CoV2 preS dTM), AS03 adjuvant added, preservative free, 5mcg/0.5mL dose 225 CVX created date: 09/23/2022 administered date: 11/09/2021 Mental Status Section Date Assessment Total Score Description 09/24/2022 BIMS 09 moderate cognit micheal impairment CAM 0 No delirium ind icated 09/24/2022 CAM 0 No delirium ind icated Problems Problem # Description Date of onset Resolved Date Code CodeSystem Concern Status 1 ACUTE KIDNEY FAILURE, UNSPECIFIED 09/19/[address] active 2 ANEMIA IN CHRONIC KIDNEY DISEASE 09/19/[address] active 3 ANEMIA, UNSPECIFIED 09/19/[address] active 4 CHEST PAIN, UNSPECIFIED 09/19/[address] active 5 CHRONIC KIDNEY DISEASE, STAGE 3 UNSPECIFIED 09/19/[address] active 6 DIFFICULTY IN WALKING, NOT ELSEWHERE CLASSIFIED 09/19/[address] active 7 ESSENTIAL (PRIMARY) HYPERTENSION 09/19/[address] active 8 GASTRO-ESOPHAGEAL REFLUX DISEASE WITHOUT ESOPHAGITIS 09/19/[address] active 9 HYPERLIPIDEMIA, UNSPECIFIED 09/19/[address] active 10 LEGAL BLINDNESS, DEFINED IN [place] 09/19/[address] active 11 MUSCLE WEAKNESS (GENERALIZED) 09/19/[address] active 12 ORTHOSTATIC HYPOTENSION 09/19/[address] active 13 OTHER CHRONIC PANCREATITIS 09/19/[address] active 14 PERSONAL HISTORY OF TRANSIENT ISCHEMIC ATTACK (TIA), AND CEREBRAL INFARCTION WITHOUT RESIDUAL DEFICITS 09/19/[address] active 15 SCHIZOAFFECTIVE DISORDER, UNSPECIFIED 09/19/[address] active 16 TYPE 2 DIABETES MELLITUS WITHOUT COMPLICATIONS 09/19/[address] active 17 UNSPECIFIED ABNORMALITIES OF GAIT AND MOBILITY 09/19/[address] active 18 UNSPECIFIED ASTHMA, UNCOMPLICATED 09/19/[address] active 19 UNSTEADINESS ON FEET 09/19/[address] active Reason for Referral No Reasons for Referral Entered Social History Social History Observation Description Start Date End Date Code Code System Current Smoking Status Tobacco smoking consumption unknown 230745793 SNOMED CT Sex Assigned At Female 1960 03198-3 [facility] Vital Signs Code Code System Vitals Name Values and Units Timing Information 00017-7 [facility] Pain Level Value=0.0 09/24/2022 8462-4 [facility] Blood Pressure-Diastolic Value=69 Un its=mmHg 09/23/2022 8480-6 [facility] Blood Pressure-Systolic Bzvzk=299 Un its=mmHg 09/23/2022 2339-0 [facility] Blood Sugar Gutxu=943.0 Units=mg/dL 09/23/2022 9279-1 [facility] Respiratory Rate Value=18.0 Units=/m in 09/22/2022 8310-5 [facility] Body Temperature Value=97.7 Units=?? F 09/22/2022 8867-4 [facility] Heart rate Value=73.0 Units=/min 67751-8 [facility] Weight Value=0.0 Units=Lbs 09/20 8302-2 [facility] Height Value=0.0 Units=Inches 09/20/2022 88763-5 [facility] O2 % BldC Oximetry Value=97.0 Units= % 09/20/2022
--- OUTSIDE RECORDS SUMMARY | 2025-02-22 17:20 | XMS_ITS | Continuity of Care Document ---
Author Organization [facility] Address [address] [place] [address]- Care Team Providers Care Working Manager Name Role Phone Keily Samuel MD Primary Care [id number]/21[facility] - 02/20/25 [facility] [address] [place], [place] [address] Encounter Type: Triage Allergies, Adverse Reactions, Alerts Substance Criticality Severity Reaction Reaction Severity Status ciprofloxacin Active codeine Active [place] Aspirin Active penicillin Active morphine Active Dilaudid Active Immunizations Given and Recorded Vaccine Date Status Refusal Reason influenza virus vaccine, inactivated 12/09/24 Give n influenza virus vaccine, inactivated 11/18/23 Give n influenza virus vaccine, inactivated 09/17/22 Ollie rded influenza virus vaccine, inactivated 1 10/23/21 Gi stephane influenza virus vaccine, inactivated 2 08/07/20 Gi stephane influenza virus vaccine, inactivated 3, 4 09/08/19 Given SARS-CoV-2 (COVID-19) mRNA BNT-162b2 vac 11/09/21 Recorded SARS-CoV-2 (COVID-19) mRNA BNT-162b2 vac 03/24/21 Recorded SARS-CoV-2 (COVID-19) mRNA BNT-162b2 vac 03/03/21 Recorded tetanus-diphtheria toxoids (Td) 5 12/06/19 Given 1Result Comment: [facility] #: [id number] 2Result Comment: NDC: 49847-864-98 3Early/Late Reason: Other : error 4Result Comment: [facility]: [address]-17 5Result Comment: [facility]: [id number] Medications albuterol CFC free 90 mcg/inh inhalation aerosol 180 mcg, 2, puffs, Inhalation, Every 4 hours, PRN, Refills 0, Maintenance, 11/21/22 12:48:00 PM EST,Inhaler Start Date: 11/21/22 Status: Ordered Repeat number: 1 amantadine 100 mg oral capsule 100 mg, 1, capsule, By Mouth, 2 times a day, # 14 capsule, Refills 0, Maintenance, 08/06/23 3:13:00 PM EDT, Partial fill upon patient request if the prescription is for a schedule II opioid drug. Start Date: 08/06/23 Stop Date: 08/13/23 Status: Ordered Quantity: 14.0 Unit: capsule Repeat number: 1 atorvastatin 40 mg oral tablet 1 tablet, By Mouth, Daily, # 90 tablet, 1 Refills, Maintenance, 01/11/25 12:25:00 PM EST, [facility], 162, cm, 12/09/24 10:42:00 EST, Height, 90.8, kg, 12/09/24 10:42:00 EST, Dry Weight Start Date: 01/11/25 Status: Ordered Quantity: 90.0 Unit: tablet Repeat number: 1 Creon 6,000 units oral delayed release capsule 2 capsule, By Mouth, 3 times a day, # 180 capsule, 3 Refills, Maintenance, 02/15/25 8:51:00 PM EDT, [facility], 162, cm, 01/19/25 11:46:00 EDT, Height, 90.8, kg, 12/09/24 10:42:00 EST, Dry Weight Start Date: 02/15/25 Status: Ordered Quantity: 180.0 Unit: capsule Repeat number: 1 Daily Caren oral tablet 1 tablet, By Mouth, Daily, # 30 tablet, 5 Refills, Maintenance, 10/10/24 9:49:00 PM EST, [facility], 30, TAKE ONE TABLET BY MOUTH EVERY DAY, 162, cm, 08/05/24 11:11:00 EDT, Height, 70.5, kg, 08/06/23 15:40:00 EDT, Dry Weight Start Date: 10/10/24 Status: Ordered Quantity: 30.0 Unit: tablet Repeat number: 1 folic acid 1 mg oral tablet 1, tablet, By Mouth, Daily, # 30 tablet, Refills 5, Maintenance, 12/16/24 1:19:00 PM EST, Route to Pharmacy Electronically, [facility], 162, cm, 12/09/24 10:42:00 EST, Height, 90.8, kg, 12/09/24 10:42:00 EST, Dry Weight Start Date: 12/16/24 Status: Ordered Quantity: 30.0 Unit: tablet Repeat number: 1 gabapentin 300 mg oral capsule See Instructions, TAKE ONE CAPSULE BY MOUTH THREE TIMES A DAY, # 90 capsule, Refills 4, Maintenance, 12/17/24 4:12:00 PM EST, Instructions Replace Required Details, Route to Pharmacy Electronically, [facility], 162, cm, 12/09/24 10:42:00 EST, Height, 90.8, kg, 12/09/24 10:42:00 EST,Dry Weight Start Date: 12/17/24 Status: Ordered Quantity: 90.0 Unit: capsule Repeat number: 1 gabapentin 300 mg oral capsule 300 mg, 1, capsule, By Mouth, 2 times a day, # 90 capsule, Refills 4, Tot. Refills 4, Maintenance, 12/09/24 11:13:00 AM EST, Do Not Route Start Date: 12/09/24 Status: Ordered Quantity: 90.0 Unit: capsule Repeat number: 5 Insulin Lispro KwikPen 100 units/mL injectable solution = 2 units, Subcutaneous Injection, 2 times a day, # 10 mL, 0 Refills, Maintenance, 12/09/24 11:06:00AM EST, Partial fill upon patient request if the prescription is for a schedule II opioid drug. Start Date: 12/09/24 Stop Date: 01/08/25 Status: Ordered Quantity: 10.0 Unit: mL Repeat number: 1 Lantus Solostar Pen 100 units/mL subcutaneous solution = 25 units, Subcutaneous Injection, Daily at bedtime, for 30 days, # 15 mL, 2 Refills, Hard Stop 04/19/25 11:55:00 AM EDT, 01/19/25 11:55:00 AM EDT, [facility], Partial fill upon patient request if the prescription is for a schedule II opioid drug., 162, cm, 01/19/25 11:46:00 EDT, Height, 90.8, kg, 12/09/24 10:42:00 EST, Dry Weight Start Date: 01/19/25 Stop Date: 04/19/25 Status: Ordered Quantity: 15.0 Unit: mL Repeat number: 3 melatonin 3 mg oral tablet = 9 mg, By Mouth, Daily at bedtime, 0 Refills, Maintenance, 11/21/22 12:49:00 PM EST, Tablet, Partial fill upon patient request if the prescription is for a schedule II opioid drug. Start Date: 11/21/22 Status: Ordered Repeat number: 1 Metoprolol Succinate ER 50 mg oral tablet, extended release 1 tablet, By Mouth, Daily, # 90 tablet, 1 Refills, Maintenance, 07/08/24 9:29:00 AM EDT, [facility], 162, cm, 04/06/24 11:32:00 EDT, Height, 70.5, kg, 08/06/23 15:40:00 EDT, Dry Weight Start Date: 07/08/24 Status: Ordered Quantity: 90.0 Unit: tablet Repeat number: 2 METOPROLOL SUCCINATE ER 50MG TB24 METOPROLOL SUCCINATE ER 50MG TB24, 1, tablet, By Mouth, Daily, # 90 tablet, 1 Refills, Maintenance,10/10/24 9:49:00 PM EST, 162, cm, 08/05/24 11:11:00 EDT, Height, 70.5, kg, 08/06/23 15:40:00 EDT, Dry Weight Start Date: 10/10/24 Status: Ordered Quantity: 90.0 Unit: tablet Repeat number: 1 mirtazapine 15 mg oral tablet 0.5 tablet = 7.5 mg, By Mouth, Daily at bedtime, 0 Refills, Maintenance, 11/21/22 12:49:00 PM EST, Tablet, Partial fill upon patient request if the prescription is for a schedule II opioid drug. Start Date: 11/21/22 Status: Ordered Repeat number: 1 omeprazole 20 mg oral enteric coated capsule 1 capsule, By Mouth, Daily, # 30 capsule, 5 Refills, Maintenance, 10/10/24 9:49:00 PM EST, [facility], 162, cm, 08/05/24 11:11:00 EDT, Height, 70.5, kg, 08/06/23 15:40:00 EDT, Dry Weight Start Date: 10/10/24 Status: Ordered Quantity: 30.0 Unit: capsule Repeat number: 1 Pen Kopperl, 31 G x 5 mm BD Ultra Fine III See Instructions, # 100 each, Refills 5, Tot. Refills 5, Maintenance, use as directed for Type 2 Diabetes Mellitus, 01/19/25 11:58:00 AM EDT, Supply, 162, cm, 01/19/25 11:46:00 EDT, Height, 90.8, kg, 12/09/24 10:42:00 EST, Dry Weight Start Date: 01/19/25 Stop Date: 07/18/25 Status: Ordered Quantity: 100.0 Unit: each Repeat number: 6 risperiDONE 1 mg oral tablet See Instructions, TAKE ONE TABLET BY MOUTH AT BEDTIME, # 30 tablet, Refills 0, Maintenance, :48:00 PM EDT, Instructions Replace Required Details, Route to Pharmacy Electronically, [facility], 163, cm, 03/18/23 14:34:00 EDT, Height, 163, kg, 01/21/23 12:32:00 EDT, Dry Weight Start Date: 04/21/23 Status: Ordered Quantity: 30.0 Unit: tablet Repeat number: 1 Tradjenta 5 mg oral tablet 1 tablet, By Mouth, Daily, # 90 tablet, 1 Refills, Maintenance, 01/09/25 8:19:00 PM EST, [facility], 162, cm, 12/09/24 10:42:00 EST, Height, 90.8, kg, 12/09/24 10:42:00 EST, Dry Weight Start Date: 01/09/25 Status: Ordered Quantity: 90.0 Unit: tablet Repeat number: 1 traZODone 150 mg oral tablet 1 tablet = 150 mg, By Mouth, Daily at bedtime, # 30 tablet, 0 Refills, Maintenance, 07/17/23 12:01:00PM EDT, Tablet, Partial fill upon patient request if the prescription is for a schedule II opioid drug. Start Date: 07/17/23 Status: Ordered Quantity: 30.0 Unit: tablet Repeat number: 1 Vitamin B1 100 mg oral tablet 1, tablet, By Mouth, Daily, # 30 tablet, Refills 6, Maintenance, 01/14/25 1:49:00 PM EST, Route to Pharmacy Electronically, [facility], 162, cm, 12/09/24 10:42:00 EST, Height, 90.8, kg, 12/09/24 10:42:00 EST, Dry Weight Start Date: 01/14/25 Status: Ordered Quantity: 30.0 Unit: tablet Repeat number: 1 Problem List Condition Confirmation Course Effective Dates Status H ealth Status Informant Alcohol use disorder in remission Confirmed Active Asthma Confirmed Active Chronic kidney disease, stage 3b 1 Confirmed Active COVID-19 2 Confirmed 10/23/22 Active GERD (gastroesophageal reflux disease) Confirmed Active History of alcohol abuse Confirmed Active S/P appendectomy Confirmed Active Hyperlipidemia Confirmed Active HTN (hypertension) Confirmed Active Obese class I Confirmed Active Pancreatic insufficiency Confirmed Active Peripheral neuropathy Confirmed Active Schizophrenia Confirmed Active Tubular adenoma of colon 3 Confirmed 08/09/23 Active DM2 (diabetes mellitus, type 2) Confirmed Active 1Per chart review meeting GFR criteria 2Problem added by Discern Expert 3repeat screening colonoscopy in 2027 Social History Social History Type Response Tobacco Other: half ppd. Sta rted at age: 26 Years. Stopped at age: 41 Years. Sex Sex Representation Female (finding) Patient Care team information Care Team Personnel Name: Keily Samuel MD Position: [facility] Physician - Primary Care Member Role: PCP Address: [address] [place] [address] Adult [facility] Pediatric [facility] [address] Telecom: Name: Allyson Blank RN Position: [facility] RN Member Role: Primary Care Nurse Name: Terence Jalloh RN Position: [facility] RN Member Role: Primary Care Nurse Name: Rajiv Damon RN Position: [facility] RN Member Role: Primary Care Nurse Name: Riana Meadows RN Position: [facility] RN Member Role: Primary Care Nurse Name: Dennise Hudson RN Position: [facility] RN Member Role: Primary Care Nurse Name: Jodi Diana RN Position: [facility] RN Member Role: Primary Care Nurse Name: Yesica Olmstead RN Position: [facility] RN Member Role: Primary Care Nurse Name: Yas Duong RN Position: [facility] RN Member Role: Primary Care Nurse Name: Ruby Pollack RN Position: [facility] RN Member Role: Primary Care Nurse Name: Chana Ambriz RN Position: [facility] RN Member Role: Primary Care Nurse Care Team Related Persons Name: ALYSE DUPONT Name: EDWIN WINCHESTER Insurance Providers Guarantor name: RUTH [facility] Plan Information #: 1 Payer: [facility] [employer] Member Number: NA Policy Number: NA Group Number: NA
--- OUTSIDE RECORDS SUMMARY | 2025-02-22 17:20 | XMS_ITS | Clinical Summary ---
Author Organization [facility] Address [address] [facility] [place] [address] [place] [address] Phone Care Team Providers Care Renal Medicine Physician Name Role Phone Keily Samuel MD Primary Care Provider [phone] Allergies Active Allergy Reactions Criticality Noted Date Comments Aspirin Other (see comments) 04/03/2021 Ciprofloxacin 11/13/2021 Fluconazole Other (see comments) 11/25/2014 Hydromorphone 09/19/2022 Morphine Other (see comments) 04/03/2021 Penicillins Other (see comments) 04/03/2021 Medications Tradjenta 5 MG tablet Take 1 tablet by mouth 1 (one) time each day 1 Active atorvastatin (LIPITOR) 40 MG tablet Take 1 tablet by mouth 1 (one) time each day 1 Active omeprazole (PriLOSEC) [address] capsule Take 1 capsule by mouth 1 (one) time each day 1 Active mirtazapine (REMERON) 7.5 MG tablet Take 1 tablet by mouth every night 1 Active folic acid (FOLVITE) 1 MG tablet Take 1 mg by mouth 1 (one) time each day Active risperiDONE (RisperDAL) 2 MG tablet Take 2 mg by mouth in the morning and 2 mg in the evening. Active Albuterol Sulfate 108 (90 Base) MCG/ACT aerosol powder Inhale Activ e Multiple Vitamin (Multivitamin) tablet Take 1 tablet by mouth 1 (one) time each day 3 Active thiamine (VITAMIN B-1) 100 MG tablet Take 100 mg by mouth 1 (one) time each day 3 Active Melatonin 10 MG tablet at night if needed 3 Active gabapentin (NEURONTIN) 300 MG capsule Take 300 mg by mouth 1 (one) time each day 3 Active fenofibrate (TRICOR) 145 MG tablet Take 145 mg by mouth 1 (one) time each day 3 Active amantadine (SYMMETREL) 100 MG capsule Take 100 mg by mouth every other day 3 Active chlorhexidine (PERIDEX) 0.12 % solution RINSE MOUTH TWO TIMES A DAY IN THE MORNING AND IN THE EVENING 3 Active Creon 6000-90016 units capsule TAKE THREE CAPSULES BY MOUTH THREE TIMES A DAY 3 Active traZODone (DESYREL) 150 MG tablet TAKE ONE TO TWO TABLETS BY MOUTH AT BEDTIME NEEDED FOR INSOMNIA 3 Active amLODIPine (NORVASC) 5 MG tablet Take 5 mg by mouth 1 (one) time each day 4 Active metoprolol tartrate (LOPRESSOR) 50 MG tablet Take 50 mg by mouth in the morning and 50 mg in the evening. 4 Active Dapagliflozin Propanediol 5 MG tablet Take 5 mg by mouth 1 (one) time each day in the morning 30 tablet 5 4 Active Active Problems Problem Noted Date Diagnosed Date Alcohol abuse 03/03/2023 Hyperkalemia 03/03/2023 Enzyme level - finding 02/10/2023 Hallucination 02/10/2023 COVID-19 10/23/2022 Overview (03/03/2023): Problem added by Discern Expert Anemia 09/19/2022 Anemia in chronic kidney disease 09/19/2022 Chest pain 09/19/2022 Difficulty in walking 09/19/2022 Gastroesophageal reflux disease 09/19/2022 Generalized muscle weakness 09/19/2022 Legal blindness, as defined in [place] 09/19/2022 Orthostatic hypotension 09/19/2022 Other chronic pancreatitis 09/19/2022 Personal history of transien t ischemic attack (TIA), and cerebral infarction without residual deficits 09/19/2022 Unspecified abnormalities of gait and mobility 1 11/19/2021 Unsteadiness on feet 09/19/2022 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/28/2022 Candidal vulvovaginitis 08/28/2022 Gynecological examination normal 08/28/2022 Hyperlipidemia 08/28/2022 Menopausal symptom 08/28/2022 Screening for malignant neoplasm of colon 2021 Hypertensive disorder 11/13/2021 Obese class II 11/13/2021 Hypertension 11/13/2021 Chronic kidney disease 10/23/2021 Acute nontraumatic kidney injury 04/03/2021 Stage 3a chronic kidney disease 04/03/2021 Hypertensive renal disease 04/03/2021 Resolved Problems Problem Noted Date Diagnosed Date Resolved Date Asthma 11/13/2021 05/29/2022 History of alcohol abuse 11/13/2021 History of appendectomy 11/13/202105/11 Pancreatic insufficiency 11/13/2021 Peripheral neuropathy 11/13/20212021 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 Schizophrenia 10/23/2021 05/29/2022 Type 2 diabetes mellitus 10/23/2021 Body fluid retention 04/03/2021 022 Encounters Date Type Department Care Team Description 01/20/2025 Office Communication [facility] [address] [address] Kenneth Portillo MD from Last 3 Months Immunizations Immunization Administration Dates Next Due Pfizer SARS-COV-2 11/09/2021,03/24/2021,03/03/20 21 Td, Unspecified 12/06/2019 Family History Medical History Relation Comments Diabetes Mother Hypertension Mother Kidney disease Mother Relation Status Comments Father Mother Social History Tobacco Use Types Packs/Day Years Used Date Smoking Tobacco: Never Smokeless Tobacco: Never Tobacco Cessation:Counseling Given: No Alcohol Use Standard Drinks/Week Comments Yes 0 (1 standard drink = 0.6 oz pure alcohol) Alcoholic Drinks/day: 1-2 drinks per day Comments Unknown Sex and Gender Information Value Date Recorded Sex Assigned at Not on file Legal Sex Female 4:49 PM EST Gender Identity Not on file Sexual Orientation Not on file Last Filed Vital Signs Vital Sign Reading Time Taken Comments Blood Pressure 110/62 02/02/2024 3:46 PM EDT Pulse 94 02/02/2024 3:46 PM EDT Temperature - - Respiratory Rate - - Oxygen Saturation 97% 02/02/2024 3:46 PM EDT Inhaled Oxygen Concentration - - Weight 83.9 kg (185 lb) 02/02/2024 3:46 PM EDT Height 162.6 cm (5' 4 ) 03/20/2020 12:00 PM EDT Body Mass Index 31.76 03/20/2020 12:00 PM EDT Plan of Treatment Upcoming Encounters Date Type Department Care Team (Late st Contact Info) Description 03/10/2025 4:30 PM EDT Office Visit [facility] [address] [facility] [address] [place] [phone] Kenneth Portillo MD [address] [address] Health Maintenance Due Date Last Done Comments Breast Cancer Screening 1960 Pneumococcal Vaccine: 50+ Years (1 of 2 - PCV) 1980 Colorectal Cancer Screening: Annual FOBT 2010 Colorectal Cancer Screening: Colonoscopy 2010 Colorectal Cancer Screening: Sigmoidoscopy 2010 Diabetes: Ophthalmology Exam 03/03/2023 Diabetes: Pedal Pulse Checked 03/03/2023 Diabetes: Sensory Foot Exam 03/03/2023 Diabetes: Visual Foot Exam 03/03/2023 Diabetes: Hemoglobin A1C 02/01/2025 11/03/2024 Influenza Vaccine Completed 12/09/2024, 11/18/2023 Hepatitis B Vaccine Aged Out No longe r eligible based on patient's age to complete this topic Procedures Procedure Name Priority Date/Time Associated Diagnosis Comments FERRITIN Routine 01/19/2025 12:10 PM EDT IRON PANEL (FE, TIBC, TSAT) Routine 01/19/2025 12:10 PM EDT CBC Routine 01/19/2025 12:10 PM EDT RENAL FUNCTION PANEL Routine 01/19/2025 12:10 PM EDT from Last 3 Months Results * Iron Panel (Fe, TIBC, TSAT) (01/19/2025 12:10 PM EDT) Pathologist [facility] TIBC 260 250 - 450 ug/dL [facility] UIBC 212 118 - 369 ug/dL [facility] Iron 48 27 - 139 ug/dL [facility] Iron Saturation (TSat) 18 15 - 55 % [facility] 01/19/2025 12:1 0 PM EDT 01/19/2025 Kenneth Portillo MD LAB BLOOD ORDERABLES Final Resul t [facility] [address] [place] [address] * (ABNORMAL) CBC (01/19/2025 12:10 PM EDT) Pathologist [facility] WBC 3.4 3.4 - 10.8 x10E3/uL [facility] RBC 3.57(L) 3.77 - 5.28 x10E6/uL [facility] Hemoglobin 10.6(L) 11.1 - 15.9 g/dL [facility] Hematocrit 32.9(L) 34.0 - 46.6 % [facility] MCV 92 79 - 97 fL [facility] MCH 29.7 26.6 - 33.0 pg [facility] MCHC 32.2 31.5 - 35.7 g/dL [facility] RDW 14.4 11.7 - 15.4 % [facility] Platelets 153 150 - 450 x10E3/uL [facility] 01/19/2025 12:1 0 PM EDT 01/19/2025 us Kenneth Portillo MD LAB BLOOD ORDERABLES Final Resul t [facility] [address] [place] [address] * Ferritin (01/19/2025 12:10 PM EDT) Ferritin 38 15 - 150 ng/mL [facility] 01/19/2025 12:1 0 PM EDT 01/19/2025 us Kenneth Portillo MD LAB BLOOD ORDERABLES Final Resul t Performing Organization Address City/[facility] Co de Phone Number [facility] [address] [place] [address] * (ABNORMAL) Renal Function Panel (01/19/2025 12:10 PM EDT) Glucose 117(H) 70 - 99 mg/dL [facility] BUN 29(H) 8 - 27 mg/dL [facility] Creatinine 1.83(H) 0.57 - 1.00 mg/dL [facility] eGFR CKD-EPI CR 2020 31(L) >59 mL/min/1.7 3 [facility] BUN/Creatinine Ratio 16 12 - 28 [facility] Sodium 139 134 - 144 mmol/L [facility] Potassium 4.5 3.5 - 5.2 mmol/L [facility] Chloride 109(H) 96 - 106 mmol/L [facility] Calcium 8.4(L) 8.7 - 10.3 mg/dL [facility] Phosphorus 3.8 3.0 - 4.3 mg/dL [facility] Albumin 3.8(L) 3.9 - 4.9 g/dL [facility] Bicarbonate (CO2) 14(L) 20 - 29 mmol/L [facility] Comment:Verified by repeat analysis 01/19/2025 12:1 0 PM EDT 01/19/2025 Kenneth Portillo MD LAB BLOOD ORDERABLES Final Resul t [facility] [address] [place] [address] from Last [address] [place] [address] ([id number]) [facility][id number][facility] Care Teams Renal Medicine Physician Relationship Specialty Start Date End Date Keily Samuel MD [address] [place], [place] PCP - General 11/20/20
--- OUTSIDE RECORDS SUMMARY | 2025-02-22 17:20 | XMS_ITS ---
Author Organization [facility] Address [address] [place] [address] Care Team Providers Care Fly Finisher Name Role Phone Lizzie RIVAS, Keily Primary Care Provider Unavailab Rikki Jimenez Unavailable [phone] REASON FOR VISIT cx appt 08/03/24 Encounters Encounter Location Date Provider Diagnosis [facility] [address] [place] [address] 06/28/2024 Rikki Lewis Plan Of Treatment No Information Progress Notes * KIAHCalixtoHenriettaOB: (64 yo F)Acc No.[id number]:06/28/2024 Patient:?Heidi Latif :1960???Age:64 Y???Sex:Female Address:[address] [facility], [place] [address] * true * Date:? Generated for Printi niles/Giancarlo/eTransmitting on:?02/22/2025 05:19 PM EDT
[2025-02-22 18:42] LABS: Anion Gap 13 (12-20); Blood Urea Nitrogen 33 mg/dL (9-16); Carbon Dioxide 17 mmol/L (22-29); Chloride 113 mmol/L (96-108); Estimated Glomerular Filt Rate 30; Potassium 4.5 mmol/L (3.3-5.1); Sodium 138 mmol/L (135-145)
[2025-02-22 18:57] LABS: Parathyroid Hormone Intact 432.5 pg/mL (8.7-77.1)
== END 2025-02-22 14:02 | disposition home or self-care (01) ==
LOC: HO.HKASLDS 14:01
PROVIDERS: Visit Provider Internal Medicine Nephrology
DX: I12.9 Hypertensive chronic kidney disease with stage 1 through stage 4 chronic kidney disease, or unspecified chronic kidney disease (principal); N18.32 Chronic kidney disease, stage 3b; N25.81 Secondary hyperparathyroidism of renal origin
CPT/HCPCS: 36415; 80051; 82565; 83970; 84520

== ENCOUNTER 2025-02-24 10:50 | Outpatient (AMB) | payer OTHER, SELFPAY ==
--- NOTE | 2025-02-24 10:55 | HO.NEPHOV_ITS ---
Vital Signs 02/24/25 10:59 Height 5 ft 4 in Weight 202 lb 2 oz BMI 34.7 BP 110/80 Blood Pressure Location Lt brachial Position Sitting Pulse 89 Pulse Source Pulse Oximeter Pulse Oximetry (%) 95 Oxygen Delivery Method Room Air Intake Visit Reasons: FU-Conf Account Executive Metalworking Required: No Accompanied by: Self / Same As Patient Allergies ciprofloxacin [CIPROFLOXACIN] Allergy (Severe, Verified 02/24/25 10:58) SEIZURE hydromorphone [HYDROMORPHONE] Allergy (Intermediate, Verified 02/24/25 10:58) SWELLING HANDS,THROAT aspirin [ASPIRIN] Allergy (Mild, Verified 02/24/25 10:58) NAUSEA,BLEEDING mesalamine [From Asacol] Allergy (Mild, Verified 02/24/25 10:58) HIVES morphine [Morphine] Allergy (Mild, Verified 02/24/25 10:58) HIVES Penicillins Allergy (Mild, Verified 02/24/25 10:58) HIVES codeine Allergy (Verified 02/24/25 10:58) Unknown Opioids - Morphine Analogues Allergy (Verified 02/24/25 10:58) Unknown HPI Comments Details: Heidi was seen in follow-up of her chronic kidney disease and hypertension. She has a diabetic with history of hypertension. She is on Farxiga. He is not on any KELVIN inhibitor or ARB. She is known to have proteinuria. She does not have any coronary artery disease, CVA, congestive heart failure, renal artery stenosis or peripheral arterial disease. She denies any joint swellings, epistaxis, skin rashes, hematuria, edema or orthostatic symptoms. She avoids nonsteroidal anti-inflammatories and maintain good hydration. Her serum crea tinine has been fairly stable lately [facility] Medical History (Updated 06/01/24 @ 13:15 by Zackary Guido MD) Hypertension Chronic kidney disease, stage 3a Surgical History Hx of appendectomy Family History Mother Diabetes Social History Alcohol intake: never Patient Tobacco Use Status: Former Tobacco user Review of Systems Const All systems reviewed & are unremarkable except as noted in HPI and below Physical Exam Vital Signs: Last Vital Signs Pulse 89 02/24/25 10:59 BP 110/80 02/24/25 10:59 Pulse Ox 95 02/24/25 10:59 Oxygen Delivery Method Room Air 02/24/25 10:59 BMI result Body Mass Index 34.7 Const General: comfortable and no acute distress Orientation/consciousness: patient oriented x3 HEENT Head: Yes normocephalic Mouth: Normal oral and palatal mucosa present Eyes EOM: EOMs intact bilaterally Neck Neck: Yes supple Resp Auscultation: clear to auscultation bilaterally Cardio Jugular venous distension: no JVD Rate: regular rate GI Palpation (GI): Soft to palpation Auscultation: normal bowel sounds General: Yes no CVA tenderness Back/Spine/Pelvis Back: no CVA tenderness Skin General skin exam: no rashes or lesions noted Neuro General: patient oriented x3 and moves all extremities Extrem General: Yes no pedal edema Results Reviewed Nephrology Results: Sodium 138 mmol/L (135-145) 02/22/25 Potassium 4.5 mmol/L (3.3-5.1) 02/22/25 Chloride 113 mmol/L (96-108) H 02/22/25 Carbon Dioxide 17 mmol/L (22-29) L 02/22/25 BUN 33 mg/dL (9-16) H 02/22/25 Creatinine 1.73 mg/dL (0.5-1.4) H 02/22/25 PTH Intact 432.5 pg/mL (8.7-77.1) H 02/22/25 Assessment & Plan Assessment & Plan (1) Secondary hyperparathyroidism (of renal origin): Code(s): N25.81 - Secondary hyperparathyroidism of renal origin Category: Medical (2) Hypertension: Code(s): I10 - Essential (primary) hypertension Category: Medical Qualifiers: Hypertension type: primary hypertension Qualified Code(s): I10 - Essential (primary) hypertension (3) Stage 3b chronic kidney disease: Code(s): N18.32 - Chronic kidney disease, stage 3b Category: Medical (4) Proteinuria: Code(s): R80.9 - Proteinuria, unspecified Category: Medical Qualifiers: Proteinuria type: other Qualified Code(s): R80.8 - Other proteinuria Plan Heidi has progressive renal dysfunction with her current serum creatinine qualify her for stage III B CKD. She is not on any KELVIN inhibitor or ARB. Her blood pressure is at goal on current medications. She avoids nonsteroidal anti- inflammatories. She is tolerating Farxiga. She never had a renal biopsy about which she always had been resistant. I started on calcitriol 0.25 mcg three time s a week. She may need NaHCO3. I did not make any other medication changes today. She was encouraged to maintain good hydration and avoid nonsteroidal inflammatories. All questions answered. Follow-up appointment given Orders: Orders Creatinine 3 Months I10 - Essential (primary) hypertension, N18.32 - Chronic kidney disease, stage 3b, N25.81 - Secondary hyperparathyroidism of renal origin Electrolytes 3 Months I10 - Essential (primary) hypertension, N18.32 - Chronic kidney disease, stage 3b, N25.81 - Secondary hyperparathyroidism of renal origin Calcium 3 Months I10 - Essential (primary) hypertension, N18.32 - Chronic kidney disease, stage 3b, N25.81 - Secondary hyperparathyroidism of renal origin Hemoglobin A1c 6 Months I10 - Essential (primary) hypertension, N18.32 - Chronic kidney disease, stage 3b, N25.81 - Secondary hyperparathyroidism of renal origin Blood Urea Nitrogen 3 Months I10 - Essential (primary) hypertension, N18.32 - Chronic kidney disease, stage 3b, N25.81 - Secondary hyperparathyroidism of renal origin Creatinine 6 Months I10 - Essential (primary) hypertension, N18.32 - Chronic kidney disease, stage 3b, N25.81 - Secondary hyperparathyroidism of renal origin Blood Urea Nitrogen 6 Months I10 - Essential (primary) hypertension, N18.32 - Chronic kidney disease, stage 3b, N25.81 - Secondary hyperparathyroidism of renal origin Electrolytes 6 Months I10 - Essential (primary) hypertension, N18.32 - Chronic kidney disease, stage 3b, N25.81 - Secondary hyperparathyroidism of renal origin Calcium 6 Months I10 - Essential (primary) hypertension, N18.32 - Chronic kidney disease, stage 3b, N25.81 - Secondary hyperparathyroidism of renal origin Parathyroid Hormone Intact 6 Months I10 - Essential (primary) hypertension, N18.32 - Chronic kidney disease, stage 3b, N25.81 - Secondary hyperparathyroidism of renal origin Vitamin D 25-OH Total 6 Months I10 - Essential (primary) hypertension, N18.32 - Chronic kidney disease, stage 3b, N25.81 - Secondary hyperparathyroidism of renal origin Medications: New calcitriol 0.25 mcg PO 3XW 14 caps 3RF Coding Level of Care Code Est Pt Level 4 (39574) Diagnoses Secondary hyperparathyroidism (of renal origin) N25.81 Primary hypertension I10 Hypertension type: primary hypertension Stage 3b chronic kidney disease N18.32 Other proteinuria R80.8 Proteinuria type: other
[2025-02-24 10:59] VITALS: BP 110/80; PULSE 89; O2SAT 95; BMI 34.7
--- OUTSIDE RECORDS SUMMARY | 2025-02-24 13:09 | XMS_ITS | Encounter Summary ---
Author Organization [facility] Address [address] [place] [address] Care Team Providers Care Foxing Cutting Machine Operator Name Role Phone Physician, Pcp Unknown Primary Care Provider Jeaneth vailable Encounter Details Date Type Department Care Team (Late st Contact Info) Description 11/26/2024 Lab Requisition [facility] - Main Lab [address] [facility] [place] [address] Winsome Asher MD [address] [place] [address] Cerebral infarction, unspecified (CMS/HCC V24, CMS/HCC V28) [...] V28) documented in this encounter Care Teams Foxing Cutting Machine Operator Relationship Specialty Start Date End Date Physician, Pcp Unknown PCP - General 11/03/24 documented as of this encounter
--- OUTSIDE RECORDS SUMMARY | 2025-02-24 13:09 | XMS_ITS | Patient Health Record ---
Author Organization [facility] Address [address] [place] [address] Care Team Providers Care Commercial Credit Officer Name Role Phone Keily Samuel MD Primary Care Provider Unavailab Rikki Jimenez Unavailable [phone] Black, Marylou Unavailable [phone] Allergies Allergen (clinical drug ingredient) Drug/Non Drug [...] 50 MG Oral for 90 Unknown Creon [id number] UNIT Oral for 30 Active Vitamin B-1 [...] Negative Encounters Encounter Location Date Provider Diagnosis [facility] [address] 04/15/2024 [facility] [address] [facility] [address] [facility] [address] 04/27/2024 Rikki Lewis [facility] [address] 06/28/2024 Rikki Lewis Plan Of Treatment No Information Insurance Providers Payer Name Payer Address Payer Phone Subscriber Number Group Number Insured Name Patient Relationship to Insured Coverage Start Date Coverage End Date [facility] [employer] Claims [address] [place] [id number] Heidi Latif Self - patient is the insured Medical (General) History Medical History History ICD Code asthma Diabetic Hiatal hernia Kidney disease Psychiatric disorder Measles
--- OUTSIDE RECORDS SUMMARY | 2025-02-24 13:09 | XMS_ITS ---
Author Organization [facility] Address [address] [place] [address] Care Team Providers Care Tank Farm Attendant Name Role Phone Lizzie RIVAS, Keily Primary Care Provider Unavailab Rikki Jimenez Unavailable [phone] REASON FOR VISIT cx appt 08/03/24 Encounters Encounter Location Date Provider Diagnosis [facility] [address] [place] [address] 06/28/2024 Rikki Lewis Plan Of Treatment No Information Progress Notes * KIAHCalixtoHenriettaOB: (64 yo F)Acc No.[id number]:06/28/2024 Patient:?Heidi Latif :1960???Age:64 Y???Sex:Female Address:[address] [facility], [place] [address] * true * Date:? Generated for Printi niles/Giancarlo/eTransmitting on:?02/24/2025 01:09 PM EDT
--- OUTSIDE RECORDS SUMMARY | 2025-02-24 13:09 | XMS_ITS ---
Author Organization [facility] Care Team Providers Care Ditch Worker Name Role Phone Diana cK Unavailable Unavailable Rosa M Thornton Unavailable Unavailable [...] Phone Organization Dates Winsome Asher PCP [address] [facility] [address], [place], [address], [place] (Office): [facility] 09/19/2022 - 09/24/2022 Diana Kc Attending Physician [address] [place], [address], [place] (Office): [facility] 09/19/2022 - 09/24/2022 Rosa M Thornton Attending Physician [address] [place], [place] [address] [address], [place], [address], [place] (Office): [facility] 09/19/2022 - 09/24/2022 Allyson Reid Attending Physician [address], [place], [address], [place] (Office): [facility] 09/19/2022 - 09/24/2022 Jayesh Delcid Attending Physician [address] [facility], [place], [address], [place] (Office): [facility] 09/19/2022 - 09/24/2022 Nat Puckett Attending Physician [address] [place], [address], [place] (Office): [facility] 09/19/2022 - 09/24/2022 Immunizations Immunization Status Vaccine [...] Status 1 ACUTE KIDNEY FAILURE, UNSPECIFIED 09/19/[address] active 2 ANEMIA IN CHRONIC KIDNEY DISEASE 09/19/[address] active 3 ANEMIA, UNSPECIFIED 09/19/[address] active 4 CHEST PAIN, UNSPECIFIED 09/19/[address] active 5 CHRONIC KIDNEY DISEASE, STAGE 3 UNSPECIFIED 09/19/[address] active 6 DIFFICULTY IN WALKING, NOT ELSEWHERE CLASSIFIED 09/19/[address] active 7 ESSENTIAL (PRIMARY) HYPERTENSION 09/19/[address] active 8 GASTRO-ESOPHAGEAL REFLUX DISEASE WITHOUT ESOPHAGITIS 09/19/[address] active 9 HYPERLIPIDEMIA, UNSPECIFIED 09/19/[address] active 10 LEGAL BLINDNESS, DEFINED IN [place] 09/19/[address] active 11 MUSCLE WEAKNESS (GENERALIZED) 09/19/[address] active 12 ORTHOSTATIC HYPOTENSION 09/19/[address] active 13 OTHER CHRONIC PANCREATITIS 09/19/[address] active 14 PERSONAL HISTORY OF TRANSIENT ISCHEMIC ATTACK (TIA), AND CEREBRAL INFARCTION WITHOUT RESIDUAL DEFICITS 09/19/[address] active 15 SCHIZOAFFECTIVE DISORDER, UNSPECIFIED 09/19/[address] active 16 TYPE 2 DIABETES MELLITUS WITHOUT COMPLICATIONS 09/19/[address] active 17 UNSPECIFIED ABNORMALITIES OF GAIT AND MOBILITY 09/19/[address] active 18 UNSPECIFIED ASTHMA, UNCOMPLICATED 09/19/[address] active 19 UNSTEADINESS ON FEET 09/19/[address] active Reason for Referral No Reasons for Referral Entered Social History Social History Observation Description Start Date End Date Code Code System Current Smoking Status Tobacco smoking consumption unknown 447963008 SNOMED CT Sex Assigned At Female 1960 09275-2 [facility] Vital Signs Code Code System Vitals Name Values and Units Timing Information 62346-1 [facility] Pain Level Value=0.0 09/24/2022 8462-4 [facility] Blood Pressure-Diastolic Value=69 Un its=mmHg 09/23/2022 8480-6 [facility] Blood Pressure-Systolic Wepsl=259 Un its=mmHg 09/23/2022 2339-0 [facility] Blood Sugar Vdysj=943.0 Units=mg/dL 09/23/2022 9279-1 [facility] Respiratory Rate Value=18.0 Units=/m in 09/22/2022 8310-5 [facility] Body Temperature Value=97.7 Units=?? F 09/22/2022 8867-4 [facility] Heart rate Value=73.0 Units=/min 33529-0 [facility] Weight Value=0.0 Units=Lbs 09/20 8302-2 [facility] Height Value=0.0 Units=Inches 09/20/2022 69666-8 [facility] O2 % BldC Oximetry Value=97.0 Units= % 09/20/2022
--- OUTSIDE RECORDS SUMMARY | 2025-02-24 13:09 | XMS_ITS | Encounter Summary ---
Author Organization [facility] Address [address] [place] [address] Care Team Providers Care Wildlife Technician Name Role Phone Physician, Pcp Unknown Primary Care Provider Jeaneth vailable Encounter Details Date Type Department Care Team (Late st Contact Info) Description 11/19/2024 Lab Requisition [facility] - Main Lab 299 [facility] [place] [phone] Winsome Asher MD [address] [place] [address] Cerebral infarction, unspecified (CMS/HCC V24, CMS/HCC V28) [...] MD LAB BLOOD ORDERABLES Final Resul t [facility] [address] [place] [address], [place] [phone] * (ABNORMAL) Complete blood count (11/22/2024 6:48 [...] LAB HEMETOLOGY METHOD 11/22/2024 2:21 PM EST [facility] NRBC 0.4 <1.0 % LAB HEMETOLOGY METHOD 11/22/2024 2:21 PM EST [facility] NRBC Absolute 0.02 <0.10 K/mcL LAB HEMETOLOGY METHOD 11/22/2024 2:21 PM EST [facility] Blood Venous blood specimen / Unknown Venipuncture / Unknown 11/22/2024 6:48 AM EST 11/22/2024 10:18 AM EST us Winsome Asher MD LAB BLOOD ORDERABLES Final Resul t [facility] [address] [place] [address], documented in this encounter Visit Diagnoses Diagnosis Cerebral infarction, unspecified (CMS/HCC V24, CMS/HCC V28) documented in this encounter Care Teams Wildlife Technician Relationship Specialty Start Date End Date Physician, Pcp Unknown PCP - General 11/03/24 documented as of this encounter
--- OUTSIDE RECORDS SUMMARY | 2025-02-24 13:09 | XMS_ITS | Clinical Summary ---
Author Organization [facility] Address [address] [facility] [address] [place] [address] Phone Care Team Providers Care Didactic Instructor Name Role Phone Keily Samuel MD Primary Care Provider [phone] Allergies Active Allergy Reactions Criticality Noted Date [...] AND IN THE EVENING 3 Active Creon 6000-64559 units capsule TAKE THREE CAPSULES BY MOUTH [...] Office Communication [facility] [address] [address] Kenneth Portillo MD from Last [...] Office Visit [facility] [address] [facility] [address] [place] [phone] Kenneth Portillo MD [address] [address] Health Maintenance Due Date Last [...] TIBC, TSAT) (01/19/2025 12:10 PM EDT) Pathologist [facility] TIBC 260 250 - 450 ug/dL [facility] UIBC 212 118 - 369 ug/dL [facility] Iron 48 27 - 139 ug/dL [facility] Iron Saturation (TSat) 18 15 - 55 % [facility] 01/19/2025 12:1 0 PM EDT 01/19/2025 Kenneth Portillo MD LAB BLOOD ORDERABLES Final Resul t [facility] [address] [place] [address] * (ABNORMAL) CBC (01/19/2025 12:10 PM EDT) Pathologist [facility] WBC 3.4 3.4 - 10.8 x10E3/uL [facility] RBC 3.57(L) 3.77 - 5.28 x10E6/uL [facility] Hemoglobin 10.6(L) 11.1 - 15.9 g/dL [facility] Hematocrit 32.9(L) 34.0 - 46.6 % [facility] MCV 92 79 - 97 fL [facility] MCH 29.7 26.6 - 33.0 pg [facility] MCHC 32.2 31.5 - 35.7 g/dL [facility] RDW 14.4 11.7 - 15.4 % [facility] Platelets 153 150 - 450 x10E3/uL [facility] 01/19/2025 12:1 0 PM EDT 01/19/2025 us Kenneth Portillo MD LAB BLOOD ORDERABLES Final Resul t [facility] [address] [place] [address] * Ferritin (01/19/2025 12:10 PM EDT) Ferritin 38 15 - 150 ng/mL [facility] 01/19/2025 12:1 0 PM EDT 01/19/2025 us Kenneth Portillo MD LAB BLOOD ORDERABLES Final Resul t Performing Organization Address City/[facility] Co de Phone Number [facility] [address] [place] [address] * (ABNORMAL) Renal Function Panel (01/19/2025 12:10 PM EDT) Glucose 117(H) 70 - 99 mg/dL [facility] BUN 29(H) 8 - 27 mg/dL [facility] Creatinine 1.83(H) 0.57 - 1.00 mg/dL [facility] eGFR CKD-EPI CR 2020 31(L) >59 mL/min/1.7 3 [facility] BUN/Creatinine Ratio 16 12 - 28 [facility] Sodium 139 134 - 144 mmol/L [facility] Potassium 4.5 3.5 - 5.2 mmol/L [facility] Chloride 109(H) 96 - 106 mmol/L [facility] Calcium 8.4(L) 8.7 - 10.3 mg/dL [facility] Phosphorus 3.8 3.0 - 4.3 mg/dL [facility] Albumin 3.8(L) 3.9 - 4.9 g/dL [facility] Bicarbonate (CO2) 14(L) 20 - 29 mmol/L [facility] Comment:Verified by repeat analysis 01/19/2025 12:1 0 PM EDT 01/19/2025 Kenneth Portillo MD LAB BLOOD ORDERABLES Final Resul t [facility] [address] [place] [address] from Last [address] [place] [address] ([id number]) [facility] ([id number]) Care Teams Didactic Instructor Relationship Specialty Start Date End Date Keily Samuel MD [address] [place], [place] PCP - General 11/20/20
--- OUTSIDE RECORDS SUMMARY | 2025-02-24 13:10 | XMS_ITS | Encounter Summary ---
Author Organization [facility] Address [address] [place] [address] Care Team Providers Care Floral Designer Salesperson Name Role Phone Physician, Pcp Unknown Primary Care Provider Jeaneth vailable Encounter Details Date Type Department Care Team (Latest Contact Info) Description 11/11/2024 Lab Requisition [facility] - Main Lab 299 [facility] [employer] [place] [phone] Winsome Asher MD [address] [place] [address] Other cerebrovascular disease Social History Tobacco Use [...] mmol/L LAB CHEMISTRY METHOD 11/11/2024 8:52 AM [facility] Potassium 4.8 3.5 - 5.5 mmol/L LAB CHEMISTRY METHOD 11/11/2024 8:52 AM [facility] Chloride 113(H) 96 - 110 mmol/L LAB CHEMISTRY METHOD 11/11/2024 8:52 AM [facility] CO2 24 21 - 32 mmol/L LAB CHEMISTRY METHOD 11/11/2024 8:52 AM [facility] Anion Gap 3 3 - 11 LAB CHEMISTRY METHOD 11/11/2024 8:52 AM [facility] Glucose 95 70 - 100 mg/dL LAB CHEMISTRY METHOD 11/11/2024 8:52 AM [facility] BUN 25 5 - 25 mg/dL LAB CHEMISTRY METHOD 11/11/2024 8:52 AM [facility] Creatinine 1.64(H) 0.50 - 1.10 mg/dL LAB CHEMISTRY METHOD 11/11/2024 8:52 AM [facility] eGFR 35(L) >=60 mL/min/1. 73m2 LAB CHEMISTRY METHOD 11/11/2024 8:52 AM [facility] Comment:Calculation based on the??Chronic Kidney Disease Epidemiology Collaboration (CKD-EPI) equation refit??without adjustment for race. BUN/Creatinine Ratio 15.2 LAB CHEMISTRY METHOD 11/11/2024 8:52 AM [facility] Calcium 8.0(L) 8.5 - 10.5 mg/dL LAB CHEMISTRY METHOD 11/11/2024 8:52 AM [facility] Blood Venous blood specimen / Unknown Venipuncture / Unknown 11/11/2024 6:29 AM EST 11/11/2024 8:17 AM EST us Winsome Asher MD LAB BLOOD ORDERABLES Final Resul t [facility] [address] [place] [address], * (ABNORMAL) Complete blood count (11/11/2024 6:29 AM EST) [facility] Signature WBC 5.7 4.8 - 10.8 K/mcL LAB HEMETOLOGY METHOD 11/11/2024 8:30 AM EST [facility] RBC 3.20(L) 3.80 - 4.80 M/mcL LAB HEMETOLOGY METHOD 11/11/2024 8:30 AM [facility] Hemoglobin 9.6(L) 11.5 - 16.0 g/dL LAB HEMETOLOGY METHOD 11/11/2024 8:30 AM [facility] Hematocrit 29.8(L) 35.0 - 47.0 % LAB HEMETOLOGY METHOD 11/11/2024 8:30 AM [facility] MCV 94.3 79.0 - 98.0 FL LAB HEMETOLOGY METHOD 11/11/2024 8:30 AM [facility] MCH 30.4 27.0 - 32.0 pcg LAB HEMETOLOGY METHOD 11/11/2024 8:30 AM [facility] MCHC 32.2 32.0 - 37.0 g/dL LAB HEMETOLOGY METHOD 11/11/2024 8:30 AM [facility] RDW 13.4 11.0 - 15.0 % LAB HEMETOLOGY METHOD 11/11/2024 8:30 AM [facility] Platelets 157 130 - 400 K/mcL LAB HEMETOLOGY METHOD 11/11/2024 8:30 AM [facility] MPV 12.6(H) 7.0 - 11.0 FL LAB HEMETOLOGY METHOD 11/11/2024 8:30 AM [facility] NRBC 0.4 <1.0 % LAB HEMETOLOGY METHOD 11/11/2024 8:30 AM EST [facility] NRBC Absolute 0.02 <0.10 K/mcL LAB HEMETOLOGY METHOD 11/11/2024 8:30 AM EST [facility] Blood Venous blood specimen / Unknown Venipuncture / Unknown 11/11/2024 6:29 AM EST 11/11/2024 8:17 AM EST us Winsome Asher MD LAB BLOOD ORDERABLES Final Resul t [facility] [address] [place] [address], documented in this encounter Visit Diagnoses Diagnosis Other cerebrovascular disease documented in this encounter Care Teams Floral Designer Salesperson Relationship Specialty Start Date End Date Physician, Pcp Unknown PCP - General 11/03/24 documented as of this encounter
--- OUTSIDE RECORDS SUMMARY | 2025-02-24 13:10 | XMS_ITS | Clinical Summary ---
Author Organization [facility] Address [address] [place] [address] Phone Care Team Providers Care Cable Tv Installer Name Role Phone Physician, Pcp Unknown Primary [...] Date Cerebrovascular accident (CV A), unspecified mechanism ([facility] V24, [facility] V28) 11/06/2024 TIA (transient ischemic attack) 11/03/2024 11/09/2024 Encounters Date Type Department Care Team Description 11/26/2024 Lab Requisition [facility] - Main Lab 299 [facility] [place] [address] Winsome Asher MD Cerebral infarction, unspecified ([facility] V24, [facility] V28) from Last 3 Months Medical History Medical History Date Comments HTN (hypertension) DM (diabetes mellitus) ([facility] V24, [facility] V28 ) Hyperlipidemia Asthma Asthma Depression Social [...] mmol/L LAB CHEMISTRY METHOD 11/22/2024 3:01 PM [facility] Potassium 4.4 3.5 - 5.5 mmol/L LAB CHEMISTRY METHOD 11/22/2024 3:01 PM [facility] Chloride 112(H) 96 - 110 mmol/L LAB CHEMISTRY METHOD 11/22/2024 3:01 PM [facility] CO2 22 21 - 32 mmol/L LAB CHEMISTRY METHOD 11/22/2024 3:01 PM [facility] Anion Gap 6 3 - 11 LAB CHEMISTRY METHOD 11/22/2024 3:01 PM [facility] Glucose 182(H) 70 - 100 mg/dL LAB CHEMISTRY METHOD 11/22/2024 3:01 PM [facility] BUN 33(H) 5 - 25 mg/dL LAB CHEMISTRY METHOD 11/22/2024 3:01 PM [facility] Creatinine 1.99(H) 0.50 - 1.10 mg/dL LAB CHEMISTRY METHOD 11/22/2024 3:01 PM [facility] eGFR 28(L) >=60 mL/min/1. 73m2 LAB CHEMISTRY METHOD 11/22/2024 3:01 PM [facility] Comment:Calculation based on the??Chronic Kidney Disease Epidemiology Collaboration (CKD-EPI) equation refit??without adjustment for race. BUN/Creatinine Ratio 16.6 LAB CHEMISTRY METHOD 11/22/2024 3:01 PM [facility] Calcium 7.8(L) 8.5 - 10.5 mg/dL LAB CHEMISTRY METHOD 11/22/2024 3:01 PM [facility] Blood Venous blood specimen / Unknown Venipuncture / Unknown 11/22/2024 6:48 AM EST 11/22/2024 10:18 AM EST us Winsome Asher MD LAB BLOOD ORDERABLES Final Resul t [facility] [address] [place] [address], * (ABNORMAL) Lipid panel with reflex to direct LDL (11/03/2024 2:15 PM EST) Cholesterol 172 0 - 200 mg/dL LAB CHEMISTRY METHOD 11/03/2024 7:42 PM EST [facility] Triglycerides 320(H) 0 - 150 mg/dL LAB CHEMISTRY METHOD 11/03/2024 7:42 PM EST [facility] HDL 41 >=40 mg/dL LAB CHEMISTRY METHOD 11/03/2024 7:42 PM EST [facility] LDL Calculated 67 0 - 100 mg/dL LAB CHEMISTRY METHOD 11/03/2024 7:42 PM EST [facility] VLDL Cholesterol Jhon 64 mg/dL LAB CHEMISTRY METHOD 11/03/2024 7:42 PM EST [facility] Non HDL Chol. (LDL+VLDL) 131 <145 mg/dL LAB CHEMISTRY METHOD 11/03/2024 7:42 PM EST [facility] Chol/HDL Ratio 4.2 0.0 - 4.4 LAB CHEMISTRY METHOD 11/03/2024 7:42 PM EST [facility] Blood Venous blood specimen / Unknown Venipuncture / Unknown 11/03/2024 2:15 PM EST 11/03/2024 2:51 PM EST us Alexander Haque DO LAB BLOOD ORDERABLES Final R esult [facility] [address] [place] [address], [place] [phone] * (ABNORMAL) Hemoglobin A1c (11/03/2024 2:15 PM EST) Hemoglobin A1C 12.4(H) <6.5 % LAB CHEMISTRY METHOD 11/04/2024 2:10 PM EST [facility] Mean Bld Glu Estim. 309 mg/dL LAB CHEMISTRY METHOD 11/04/2024 2:10 PM EST [facility] Blood Venous blood specimen / Unknown Venipuncture / Unknown 11/03/2024 2:15 PM EST 11/03/2024 2:51 PM EST us Mando GE LAB BLOOD ORDERABLES Damaris mitchell Result [facility] [address] [place] [address], from Last 3 Months or Most Recently Relevant to Health Maintenance Insurance [facility] MEDIC[facility] Member Subscriber Plan / Payer (Ef fective 2019-Present) Name:Calixto Latifise Perla Relation to Subscriber:Self Name:Heidi Latif Payer ID:[id number] Group ID:[id number] Type:Not on file Address: [place] [address] [place] [id number] Advance Directives Documents on File Type Date Recorded 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 Do not modify or discontinue any currently active code status orders. Healthcare Agents on File Name Relationship Healthcare Agent Relationshi p Communication Anjum Villarreal Spouse Health Care Agent Care Teams Cable Tv Installer Relationship Specialty Start Date End Date Physician, Pcp Unknown PCP - General 11/03/24
--- OUTSIDE RECORDS SUMMARY | 2025-02-24 13:10 | XMS_ITS | Encounter Summary ---
Author Organization [facility] Address [address] [place] [address] Care Team Providers Care Vice President Of Manufacturing Name Role Phone Physician, Pcp Unknown Primary Care Provider Jeaneth vailable Encounter Details Date Type Department Care Team (Late st Contact Info) Description 11/15/2024 Lab Requisition [facility] - Main Lab 299 [facility] [place] [phone] Winsome Asher MD [address] [place] [address] Cerebral infarction, unspecified (CMS/HCC V24, CMS/HCC V28) [...] mmol/L LAB CHEMISTRY METHOD 11/15/2024 2:57 PM [facility] Potassium 4.5 3.5 - 5.5 mmol/L LAB CHEMISTRY METHOD 11/15/2024 2:57 PM [facility] Chloride 113(H) 96 - 110 mmol/L LAB CHEMISTRY METHOD 11/15/2024 2:57 PM [facility] CO2 22 21 - 32 mmol/L LAB CHEMISTRY METHOD 11/15/2024 2:57 PM [facility] Anion Gap 5 3 - 11 LAB CHEMISTRY METHOD 11/15/2024 2:57 PM [facility] Glucose 146(H) 70 - 100 mg/dL LAB CHEMISTRY METHOD 11/15/2024 2:57 PM [facility] BUN 27(H) 5 - 25 mg/dL LAB CHEMISTRY METHOD 11/15/2024 2:57 PM [facility] Creatinine 1.59(H) 0.50 - 1.10 mg/dL LAB CHEMISTRY METHOD 11/15/2024 2:57 PM [facility] eGFR 36(L) >=60 mL/min/1. 73m2 LAB CHEMISTRY METHOD 11/15/2024 2:57 PM [facility] Comment:Calculation based on the??Chronic Kidney Disease Epidemiology Collaboration (CKD-EPI) equation refit??without adjustment for race. BUN/Creatinine Ratio 17.0 LAB CHEMISTRY METHOD 11/15/2024 2:57 PM [facility] Calcium 8.2(L) 8.5 - 10.5 mg/dL LAB CHEMISTRY METHOD 11/15/2024 2:57 PM [facility] Blood Venous blood specimen / Unknown 11/15/2024 9:13 AM EST 11/15/2024 1:07 PM EST us Winsome Asher MD LAB BLOOD ORDERABLES Final Resul t [facility] [address] [place] [address], * (ABNORMAL) Complete blood count (11/15/2024 9:13 AM EST) WBC 4.6(L) 4.8 - 10.8 K/mcL LAB HEMETOLOGY METHOD 11/15/2024 2:10 PM EST [facility] RBC 3.10(L) 3.80 - 4.80 M/mcL LAB HEMETOLOGY METHOD 11/15/2024 2:10 PM EST [facility] Hemoglobin 9.4(L) 11.5 - 16.0 g/dL LAB HEMETOLOGY METHOD 11/15/2024 2:10 PM [facility] Hematocrit 29.6(L) 35.0 - 47.0 % LAB HEMETOLOGY METHOD 11/15/2024 2:10 PM EST [facility] MCV 94.9 79.0 - 98.0 FL LAB HEMETOLOGY METHOD 11/15/2024 2:10 PM EST [facility] MCH 30.1 27.0 - 32.0 pcg LAB HEMETOLOGY METHOD 11/15/2024 2:10 PM EST [facility] MCHC 31.8(L) 32.0 - 37.0 g/dL LAB HEMETOLOGY METHOD 11/15/2024 2:10 PM EST [facility] RDW 13.7 11.0 - 15.0 % LAB HEMETOLOGY METHOD 11/15/2024 2:10 PM [facility] Platelets 174 130 - 400 K/mcL LAB HEMETOLOGY METHOD 11/15/2024 2:10 PM [facility] MPV 12.8(H) 7.0 - 11.0 FL LAB HEMETOLOGY METHOD 11/15/2024 2:10 PM EST [facility] NRBC 0.0 <1.0 % LAB HEMETOLOGY METHOD 11/15/2024 2:10 PM EST [facility] NRBC Absolute 0.00 <0.10 K/mcL LAB HEMETOLOGY METHOD 11/15/2024 2:10 PM EST [facility] Blood Venous blood specimen / Unknown Venipuncture / Unknown 11/15/2024 9:13 AM EST 11/15/2024 1:07 PM EST us Winsome Asher MD LAB BLOOD ORDERABLES Final Resul t [facility] [address] [place] [address], documented in this encounter Visit Diagnoses Diagnosis Cerebral infarction, unspecified (CMS/HCC V24, CMS/HCC V28) documented in this encounter Care Teams Vice President Of Manufacturing Relationship Specialty Start Date End Date Physician, Pcp Unknown PCP - General 11/03/24 documented as of this encounter
== END 2025-02-24 11:25 | disposition home or self-care (01) ==
LOC: HO.HKAS 10:51
PROVIDERS: PCP Internal Medicine; Visit Provider Internal Medicine Nephrology
DX: N25.81 Secondary hyperparathyroidism of renal origin (principal); I10 Essential (primary) hypertension; N18.32 Chronic kidney disease, stage 3b; R80.8 Other proteinuria
CPT/HCPCS: 99214

== ENCOUNTER → 2025-02-24 10:50 | Outpatient (BNVA) | payer OTHER, SELFPAY | PROVIDERS: PCP Internal Medicine; Visit Provider Internal Medicine Nephrology | DX: I12.9 Hypertensive chronic kidney disease with stage 1 through stage 4 chronic kidney disease, or unspecified chronic kidney disease (principal); N25.81 Secondary hyperparathyroidism of renal origin; N18.32 Chronic kidney disease, stage 3b; R80.8 Other proteinuria | CPT/HCPCS: 99212 ==

== ENCOUNTER 2025-05-12 11:05 | Outpatient (REF) | payer OTHER, SELFPAY ==
--- OUTSIDE RECORDS SUMMARY | 2024-04-27 05:30 | XMS_ITS ---
Author Organization [facility] Address [address] [place] [address] Care Team Providers Care Ballistic Technician Name Role Phone Keily Samuel MD Primary Care Provider UnavailRikki Montenegro Unavailable [phone] Allergies Allergen (clinical drug ingredient) Drug/Non Drug Allergy documented on EMR Reaction Allergy Type Onset Date Status aspirin [place] Aspirin Unknown Drug Allergy Act micheal hydromorphone Dilaudid Unknown Drug Allergy Act micheal ciprofloxacin Ciprofloxacin Unknown Drug Allergy Active codeine Codeine Unknown Drug Allergy Active morphine Morphine Unknown Drug Allergy Active Penicillin Unknown Drug Allergy Active Medications Medication SIG (Take, Route, Frequency, Duration) Notes Start Date End Date Status traZODone HCl 150 MG TAKE 1-2 TABLETS BY MOUTH AT BEDTIME, NEEDED FOR INSOMNIA Oral; Duration: 30 Active Gabapentin 300 MG TAKE ONE CAPSULE BY MOUTH TWICE A DAY Oral; Duration: 30 Active Amantadine HCl 100 MG Oral; Duration: 60 Active Farxiga 5 MG Oral; Duration: 30 Active Melatonin 10 MG Oral; Duration: 30 Active Omeprazole 20 MG TAKE ONE CAPSULE BY MOUTH EVERY DAY Oral; Duration: 30 Active risperiDONE 2 MG TAKE ONE TABLET BY M OUTH TWICE A DAY Oral; Duration: 30 Active Tradjenta 5 MG TAKE ONE TABLET BY M OUTH EVERY DAY Oral; Duration: 30 Active Metoprolol Succinate ER 50 MG Oral; Duration: 90 Active Vitamin B-1 100 MG TAKE ONE TABLET BY M OUTH EVERY DAY Oral; Duration: 30 Active Metoprolol Tartrate 50 MG Oral; Duration: 90 Active Cephalexin 500 MG Oral; Duration: 10 Active Atorvastatin Calcium 40 MG TAKE ONE TABL ET BY MOUTH EVERY DAY Oral; Duration: 30 Active Mirtazapine 7.5 MG TAKE ONE TABLET BY M OUTH EVERY DAY AT BEDTIME Oral; Duration: 30 Active Multivitamin - TAKE ONE TABLET BY M OUTH EVERY DAY Oral; Duration: 30 Active Albuterol Sulfate HFA 108 (90 Base) MCG/ACT 1 puff as needed Inhalation every 4 hrs Active Creon 6000-58622 UNIT Oral; Duration: 30 Active Folic Acid 1 MG Oral; Duration: 30 Active amLODIPine Besylate 10 MG TAKE ONE TABLE T BY MOUTH EVERY DAY Oral; Duration: 30 Active Social History Tobacco Use: Social History Observation Description Date Details (start date - stop date) Former Smoker NA - NA Tobacco Use/Smoking Question Answer Notes Are you a: former smoker Additional Findings: Tobacco Non-User Current no n-smoker Alcohol Screen Question Answer Notes Did you have a drink containing alcohol in the p ast year? No Points 0 Interpretation Negative Vital Signs Height 5 ft 4 in in 04/27/2024 Weight 170 lbs 04/27/2024 BMI 29.18 kg/m2 04/27/2024 Encounters Encounter Location Date [facility] [address] [place] [address] 04/27/2024 Rikki Lewis Plan Of Treatment No Information Progress Notes * Marry DUPONTOB: (64 yo F)Acc No.[id number]:04/27/2024 Progress Notes Patient: Heidi CHRISTIAN Provider: Gabo Lewis DPM :1960 A ge:63 Y S ex:Female Date:04/27/2024 Address:[address] [place] [address], [address] [address] Pcp:Keily Samuel MD Subjective: * Chief Complaints: * * ROS: G eneral/Constitutional: Nausea d enies. V omiting d enies. H hipolito Thirst d enies. L oss appetite d enies. C hills d enies. F atigue d enies.?Fever d enies. N ight Sweats d enies. U nexplained weight loss d enies. U nexplained weight gain d enies. H EENTM: Dentures d enies. D izziness d enies. G lasses/contacts a dmits. R etinopathy d enies. B lurred/double vision d enies. T MJ?denies. D ischarge/drainage d enies. I mplants d enies. S ore throat d enies. D ental implants d enies. H roosevelt of hearing d enies. D ifficulty chewing/swallowing/speaking d enies. N ose bleeds d enies. S ore mouth d enies. ? R espiratory: On Oxygen d enies. P neumonia/pleurisy d enies.?Bronchitis d enies. E mphysema d enies. C oughing d enies. C ough blood?denies. S hortness of breath d enies. W heezing d enies. C ardiovascular: Pacemaker d enies. M SECOND HAND d enies. W PW d enies. C HF d enies. H eart attack d enies. S eptal defect d enies. R apid beat d enies. C hest pain d enies. A trial Fib. d enies. M urmur/Palpitations d enies. G astrointestinal: Hemorrhoids d enies. S tomach/Abdominal pain d enies. D ark blood stool d enies. I rritable bowel d enies. C onstipation d enies. D iarrhea d enies. H ematology: Swelling d enies. C lots d enies. V aricose Veins d enies. B ruising d enies. B leeding problem d enies. G enitourinary: Blood urine d enies. F requent/Painfu/urination/bladder control d enies. K idney stones d enies. I nfection (UTI) d enies. N ephropathy d enies. s ex trans dis (STD) d enies. P rostate d enies. M usculoskeletal: Hammertoes d enies. B unions d enies. B ack Pain a dmits. M uscle Cramps/ Resting d enies. M uscle cramps / walking d enies.?Generalized aches and pains d enies. W eakness d enies. I nteg.: Maguire d enies. S cars d enies. C orns/calluses?denies. I ngrown nails a dmits. P ainful nails d enies. O pen Sores d enies. R ashes d enies. N eurologic: Difficulty sleeping d enies. B rain disorder d enies. N umbness d enies. B alance trouble d enies. C onfusion d enies. F ainting/blackouts d enies. T ingling d enies. T remors d enies. * Medical History: A sthma, Diabetic, Hiatal hernia, Kidney disease, Psychiatric disorder, Measles. * Family History: M other: , diagnosed with Diabetic - NIDDM, Unspecified essential hypertension. F ather: . * Social History: T obacco Use: T obacco Use/Smoking A re you a: f ormer smoker A dditional Findings: Tobacco Non-User C urrent non-smoker D rugs/Alcohol: D rugs H ave you used drugs other than those for medical reasons in the past 12 months? N o Alcohol Screen D id you have a drink containing alcohol in the past year? N o P oints 0 I nterpretation N egative M iscellaneous: C affeine: yes, frequency:. Exercise: yes, walking. Marital status: . Occupation: unemployed. * Medications: T aking Albuterol Sulfate HFA 108 (90 Base) MCG/ACT Aerosol Solution 1 puff as needed Inhalation every 4 hrs , Taking Creon 6000-87148 UNIT Capsule Delayed Release Particles Oral , Taking Folic Acid 1 MG Tablet Oral , Taking Metoprolol Tartrate 50 MG Tablet Oral , Taking Cephalexin 500 MG Capsule Oral , Taking Atorvastatin Calcium 40 MG Tablet TAKE ONE TABLET BY MOUTH EVERY DAY Oral , Taking Mirtazapine 7.5 MG Tablet TAKE ONE TABLET BY MOUTH EVERY DAY AT BEDTIME Oral , Taking Multivitamin - Tablet TAKE ONE TABLET BY MOUTH EVERY DAY Oral , Taking Omeprazole 20 MG Capsule Delayed Release TAKE ONE CAPSULE BY MOUTH EVERY DAY Oral , Taking risperiDONE 2 MG Tablet TAKE ONE TABLET BY MOUTH TWICE A DAY Oral , Taking Tradjenta 5 MG Tablet TAKE ONE TABLET BY MOUTH EVERY DAY Oral , Taking Metoprolol Succinate ER 50 MG Tablet Extended Release 24 Hour Oral , Taking Vitamin B-1 100 MG Tablet TAKE ONE TABLET BY MOUTH EVERY DAY Oral , Taking traZODone HCl 150 MG Tablet TAKE 1-2 TABLETS BY MOUTH AT BEDTIME, NEEDED FOR INSOMNIA Oral , Taking Gabapentin 300 MG Capsule TAKE ONE CAPSULE BY MOUTH TWICE A DAY Oral , Taking Amantadine HCl 100 MG Capsule Oral , Taking Farxiga 5 MG Tablet Oral , Taking Melatonin 10 MG Tablet Oral , Taking amLODIPine Besylate 10 MG Tablet TAKE ONE TABLET BY MOUTH EVERY DAY Oral * Allergies: B miky Aspirin, Dilaudid, Ciprofloxacin, Codeine, Morphine, Penicillin. Objective: * Vitals: H t: 5 ft 4 in, Wt: 170, BMI:29.18, Shoe size: 8. Assessment: Plan: * Treatment: * Images: * The named appointment provid er may or may not be the originator of this progress note, and it is not deemed complete until electronically signed by the appointment provider. Sign off status: Pending * Provider: Gabo Lewis DPM Date: 0 04/27/2024 Generated for Tian cage/Giancarlo/Karen on: 0 05/12/2025 11:56 AM EDT
--- OUTSIDE RECORDS SUMMARY | 2025-05-12 11:56 | XMS_ITS | Clinical Summary ---
Author Organization [facility] Address [address] [facility] [address] [place] [address] Phone Care Team Providers Care Sill Worker Name Role Phone Keily Samuel MD Primary Care Provider [phone] Allergies Active Allergy Reactions Criticality Noted Date [...] AND IN THE EVENING 3 Active Creon 6000-58561 units capsule TAKE THREE CAPSULES BY MOUTH [...] mellitus 10/23/2021 Body fluid retention 04/03/2021 022 Immunizations Immunization Administration Dates Next Due Pfizer [...] 03/20/2020 12:00 PM EDT Plan of Treatment Health Maintenance Due Date [...] on patient's age to complete this topic [place] [address] ([id number]) [place] [phone] [place] [address] ([id number]) [place] [phone] Care Teams Sill Worker Relationship Specialty Start Date End Date Keily Samuel MD [address] [place], [place] PCP - General 11/20/20
--- OUTSIDE RECORDS SUMMARY | 2025-05-12 11:56 | XMS_ITS | Encounter Summary ---
Author Organization [facility] Address [address] [place] [address] Care Team Providers Care Marking Clerk Name Role Phone Physician, Pcp Unknown Primary Care Provider Jeaneth vailable Encounter Details Date Type Department Care Team (Late st Contact Info) Description 11/19/2024 Lab Requisition [facility] - Main Lab [address] [facility] [place] [phone] Winsome Asher MD [address] [place] [address] Cerebral infarction, unspecified (CMS/HCC V24, CMS/HCC V28) [...] mmol/L LAB CHEMISTRY METHOD 11/22/2024 3:01 PM [facility] Potassium 4.4 3.5 - 5.5 mmol/L LAB CHEMISTRY METHOD 11/22/2024 3:01 PM [facility] Chloride 112(H) 96 - 110 mmol/L LAB CHEMISTRY METHOD 11/22/2024 3:01 PM [facility] CO2 22 21 - 32 mmol/L LAB CHEMISTRY METHOD 11/22/2024 3:01 PM [facility] Anion Gap 6 3 - 11 LAB CHEMISTRY METHOD 11/22/2024 3:01 PM [facility] Glucose 182(H) 70 - 100 mg/dL LAB CHEMISTRY METHOD 11/22/2024 3:01 PM [facility] BUN 33(H) 5 - 25 mg/dL LAB CHEMISTRY METHOD 11/22/2024 3:01 PM [facility] Creatinine 1.99(H) 0.50 - 1.10 mg/dL LAB CHEMISTRY METHOD 11/22/2024 3:01 PM [facility] eGFR 28(L) >=60 mL/min/1. 73m2 LAB CHEMISTRY METHOD 11/22/2024 3:01 PM [facility] Comment:Calculation based on the Chronic Kidney Disease Epidemiology Collaboration (CKD-EPI) equation refit without adjustment for race. BUN/Creatinine Ratio 16.6 LAB CHEMISTRY METHOD 11/22/2024 3:01 PM [facility] Calcium 7.8(L) 8.5 - 10.5 mg/dL LAB CHEMISTRY METHOD 11/22/2024 3:01 PM [facility] Blood Venous blood specimen / Unknown Venipuncture / Unknown 11/22/2024 6:48 AM EST 11/22/2024 10:18 AM EST us Winsome Asher MD LAB BLOOD ORDERABLES Final Resul t [facility] [address] [place] [address], * (ABNORMAL) Complete blood count (11/22/2024 6:48 AM EST) WBC 5.2 4.8 - 10.8 K/mcL LAB HEMETOLOGY METHOD 11/22/2024 2:21 PM EST [facility] RBC 3.00(L) 3.80 - 4.80 M/mcL LAB HEMETOLOGY METHOD 11/22/2024 2:21 PM [facility] Hemoglobin 9.2(L) 11.5 - 16.0 g/dL LAB HEMETOLOGY METHOD 11/22/2024 2:21 PM [facility] Hematocrit 29.1(L) 35.0 - 47.0 % LAB HEMETOLOGY METHOD 11/22/2024 2:21 PM [facility] MCV 96.4 79.0 - 98.0 FL LAB HEMETOLOGY METHOD 11/22/2024 2:21 PM [facility] MCH 30.5 27.0 - 32.0 pcg LAB HEMETOLOGY METHOD 11/22/2024 2:21 PM [facility] MCHC 31.6(L) 32.0 - 37.0 g/dL LAB HEMETOLOGY METHOD 11/22/2024 2:21 PM [facility] RDW 14.0 11.0 - 15.0 % LAB HEMETOLOGY METHOD 11/22/2024 2:21 PM [facility] Platelets 155 130 - 400 K/mcL LAB HEMETOLOGY METHOD 11/22/2024 2:21 PM [facility] MPV 11.9(H) 7.0 - 11.0 FL LAB HEMETOLOGY METHOD 11/22/2024 2:21 PM EST [facility] NRBC 0.4 <1.0 % LAB HEMETOLOGY METHOD 11/22/2024 2:21 PM EST [facility] NRBC Absolute 0.02 <0.10 K/mcL LAB HEMETOLOGY METHOD 11/22/2024 2:21 PM EST [facility] Blood Venous blood specimen / Unknown Venipuncture / Unknown 11/22/2024 6:48 AM EST 11/22/2024 10:18 AM EST us Winsome Asher MD LAB BLOOD ORDERABLES Final Resul t [facility] [address] [place] [address], documented in this encounter Visit Diagnoses Diagnosis Cerebral infarction, unspecified (CMS/HCC V24, CMS/HCC V28) documented in this encounter Care Teams Marking Clerk Relationship Specialty Start Date End Date Physician, Pcp Unknown PCP - General 11/03/24 documented as of this encounter
--- OUTSIDE RECORDS SUMMARY | 2025-05-12 11:56 | XMS_ITS | Patient Health Record ---
Author Organization [facility] Address [address] [place] [address] Support Name Relationship Address Phone RUTH DUPONT Guarantor Unknown [phone] Reason For Referral No Information Medications Medication SIG (Take, Route, Fr equency, Duration) Notes Start Date End Date Status Metoprolol Tartrate ORAL; Duration: -3 Kendrick-MJ 11/07/2011 Active Vagifem 10MCG 1 Vaginal TWICE A WE EK; Duration: -3 Kendrick-MJ 12/02/2011 Active Omeprazole 20MG ORAL; Duration: -3 Kendrick-MJ 11/07/2011 Active Tab-A-Caren ORAL; Duration: -3 Kendrick-MJ 11/07/2011 Active Problems Problem Type SNOMED Code ICD Code Onset Dates Problem Status W/U Status Risk Notes Problem Candidal vulvovaginitis (34192221) Candidiasis of vulva and vagina (112.1) Active confirmed Diag Problem 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 Major Problem Hyperlipidemia (31262011) Other and unspecified hyperlipidemia (272.4) Active confirmed Major Problem Essential hypertension (82779428) Unspecified essential hypertension (401.9) Active confirmed Major Problem Asthma (disorder) (826792654) Asthma, unspecified, unspecified status (493.90) Active confirmed Major Problem Menopausal symptom (77656173) Symptomatic menopausal or female climacteric states (627.2) Active confirmed Major Problem Gynecological examination normal (743025589717904) Routine gynecological examination (V72.31) Active confirmed Major Problem Screening for malignant neoplasm of colon (756502033) Special screening for malignant neoplasms, colon (V76.51) Active confirmed Major Plan Of Treatment No Information Insurance Providers Payer Name Payer Address Payer Phone Subscriber Number Group Number Insured Name Patient Relationship to Insured Coverage Start Date Coverage End Date MEDICARE [address] [facility], [place] [id number] KIAH, RUTH Self - patient is the insured
[2025-05-12 15:46] LABS: Anion Gap 13 (12-20); Blood Urea Nitrogen 30 mg/dL (9-16); Calcium 7.9 mg/dL (8.4-10.2); Carbon Dioxide 19 mmol/L (22-29); Chloride 110 mmol/L (96-108); Estimated Glomerular Filt Rate 28; Potassium 4.6 mmol/L (3.3-5.1); Sodium 137 mmol/L (135-145)
== END 2025-05-12 11:06 | disposition home or self-care (01) ==
LOC: HO.HKASLDS 11:05
PROVIDERS: Visit Provider Internal Medicine Nephrology
DX: I12.9 Hypertensive chronic kidney disease with stage 1 through stage 4 chronic kidney disease, or unspecified chronic kidney disease (principal); N18.32 Chronic kidney disease, stage 3b; N25.81 Secondary hyperparathyroidism of renal origin
CPT/HCPCS: 36415; 80051; 82310; 82565; 84520

== ENCOUNTER 2025-08-18 10:32 | Outpatient (REF) | payer OTHER, SELFPAY ==
[2025-08-18 17:03] LABS: Parathyroid Hormone Intact 330.7 pg/mL (8.7-77.1)
[2025-08-18 18:48] LABS: Anion Gap 16 (12-20); Blood Urea Nitrogen 22 mg/dL (9-16); Calcium 8.4 mg/dL (8.4-10.2); Carbon Dioxide 18 mmol/L (22-29); Chloride 113 mmol/L (96-108); Estimated Glomerular Filt Rate 29; Potassium 4.9 mmol/L (3.3-5.1); Sodium 142 mmol/L (135-145)
== END 2025-08-18 10:33 | disposition home or self-care (01) ==
LOC: HO.HKASLDS 10:32
PROVIDERS: PCP Internal Medicine; Visit Provider Internal Medicine Nephrology
DX: Z13.1 Encounter for screening for diabetes mellitus (principal); I12.9 Hypertensive chronic kidney disease with stage 1 through stage 4 chronic kidney disease, or unspecified chronic kidney disease; N18.32 Chronic kidney disease, stage 3b; N25.81 Secondary hyperparathyroidism of renal origin
CPT/HCPCS: 36415; 80051; 82306; 82310; 82565; 83036; 83970; 84520

== ENCOUNTER 2025-08-23 10:49 | Outpatient (AMB) | payer OTHER, SELFPAY ==
--- OUTSIDE RECORDS SUMMARY | 2024-04-27 05:30 | XMS_ITS ---
Author [facility] Address [address] [place] [address] Care Team Providers Care Vp Ad Sales West Name Role Phone Keily Samuel MD Primary Care Provider UnavailRikki Montenegro Unavailable [phone] Allergies Allergen (clinical drug ingredient) Drug/Non Drug [...] needed Inhalation every 4 hrs Active Creon 6000-59615 UNIT Oral; Duration: 30 Active Folic Acid [...] 04/27/2024 Encounters Encounter Location Date [facility] [address] [place] [address] 04/27/2024 Rikki Lewis Plan Of Treatment No Information Progress Notes * Marry DUPONTOB: (65 yo F)Acc No.[id number]:04/27/2024 Progress Notes Patient: Heidi CHRISTIAN Provider: Gabo Lewis DPM :1960 A ge:63 Y S ex:Female Date:04/27/2024 Address:[address] [place] [address], [address] [address] Pcp:Keily Samuel MD Subjective: * Chief Complaints: [...] enies. C ardiovascular: Pacemaker d enies. 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 W PW d enies. C [...] Inhalation every 4 hrs , Taking Creon 6000-59743 UNIT Capsule Delayed Release Particles Oral , [...] 0 04/27/2024 Generated for Tian cage/Giancarlo/Karen on: 12:56 PM EDT
--- OUTSIDE RECORDS SUMMARY | 2024-07-20 10:00 | XMS_ITS ---
Author Organization [facility] Address [address] [place] [address] Care Team Providers Care Mixing Place Supervisor Name Role Phone Lizzie RIVAS, Keily Primary Care Provider Unavailab Rikki Jimenez Unavailable [phone] Marylou Paz [phone] Encounters Encounter Location Date Provider Diagnosis [address] [address] 07/20/2024 Marylou Paz Plan Of Treatment No Information Progress Notes * Marry DUPONTOB: (65 yo F)Acc No.[id number]:07/20/2024 Progress Notes Patient: Heidi CHRISTIAN Provider: Yony Paz DPM :1960 A ge:64 Y S ex:Female Date:07/20/2024 Address:[address] [place] [address], [address], [place], [place] Pcp:Keily Samuel MD Subjective: * Chief Complaints: * * Medical History: Objective: * Vitals: Assessment: Plan: * Treatment: * Images: * The named appointment provid er may or may not be the originator of this progress note, and it is not deemed complete until electronically signed by the appointment provider. Sign off status: Pending * Provider: Yony Paz DPM Date: 0 07/20/2024 Generated for Tian cage/Giancarlo/eTransmitting on: 1 12:55 PM EDT
--- OUTSIDE RECORDS SUMMARY | 2024-08-03 09:00 | XMS_ITS ---
Author [facility] Address [address] [place] [address] Care Team Providers Care Company Truck Driver Name Role Phone Keily Samuel MD Primary Care Provider UnavailRikki Montenegro Unavailable [phone] Allergies Allergen (clinical drug ingredient) Drug/Non Drug [...] Duration) Notes Start Date End Date Status amLODIPine Besylate 10 MG TAKE ONE TABLE T BY MOUTH EVERY DAY Oral; Duration: 30 Active Amantadine HCl 100 MG Oral; Duration: 60 Active Farxiga 5 MG Oral; Duration: 30 Unknown Melatonin 10 MG Oral; Duration: 30 Unknown Gabapentin 300 MG TAKE ONE CAPSULE BY MOUTH TWICE A DAY Oral; Duration: 30 Active risperiDONE 2 MG TAKE ONE TABLET BY M OUTH TWICE A DAY Oral; Duration: 30 Active Tradjenta 5 MG TAKE ONE TABLET BY M OUTH EVERY DAY Oral; Duration: 30 Active Metoprolol Succinate ER 50 MG Oral; Duration: 90 Unknown Vitamin B-1 100 MG TAKE ONE TABLET BY M OUTH EVERY DAY Oral; Duration: 30 Active traZODone HCl 150 MG TAKE 1-2 TABLETS BY MOUTH AT BEDTIME, NEEDED FOR INSOMNIA Oral; Duration: 30 Active Multivitamin - TAKE ONE TABLET BY M OUTH EVERY DAY Oral; Duration: 30 Active Omeprazole 20 MG TAKE ONE CAPSULE BY MOUTH EVERY DAY Oral; Duration: 30 Active Atorvastatin Calcium 40 MG TAKE ONE TABL ET BY MOUTH EVERY DAY Oral; Duration: 30 Active Mirtazapine 7.5 MG TAKE ONE TABLET BY M OUTH EVERY DAY AT BEDTIME Oral; Duration: 30 Active Cephalexin 500 MG Oral; Duration: 10 Unknown Albuterol Sulfate HFA 108 (90 Base) MCG/ACT 1 puff as needed Inhalation every 4 hrs Active Creon 6000-37877 UNIT Oral; Duration: 30 Active Folic Acid 1 MG Oral; Duration: 30 Active Metoprolol Tartrate 50 MG Oral; Duration: 90 Active Social History Tobacco Use: Social History [...] Signs Height 5 ft 4 in in 08/03/2024 Weight 170 lbs lbs 08/03/2024 BMI 29.18 kg/m2 08/03/2024 Encounters Encounter Location Date Provider Diagnosis [facility] [address] [address] 08/03/2024 Rikki Lewis Plan Of Treatment No Information Progress Notes * Marry DUPONTOB: (65 yo F)Acc No.[id number]:08/03/2024 Progress Notes Patient: Heidi CHRISTIAN Provider: Gabo Lewis DPM :1960 A ge:64 Y S ex:Female Date:08/03/2024 Address:[address] [place] [address], [address] [address] Pcp:Keily Samuel MD Subjective: * Chief Complaints: [...] enies. C ardiovascular: Pacemaker d enies. 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 W PW d enies. C [...] Inhalation every 4 hrs , Taking Creon 6000-18504 UNIT Capsule Delayed Release Particles Oral , Taking Folic Acid 1 MG Tablet Oral , Taking Metoprolol Tartrate 50 MG Tablet Oral , Taking Atorvastatin Calcium 40 MG [...] BY MOUTH EVERY DAY Oral , Taking Vitamin B-1 100 MG Tablet TAKE ONE TABLET BY MOUTH EVERY DAY Oral , Taking traZODone HCl 150 MG Tablet TAKE 1-2 TABLETS BY MOUTH AT BEDTIME, NEEDED FOR INSOMNIA Oral , Taking Gabapentin 300 MG Capsule TAKE ONE CAPSULE BY MOUTH TWICE A DAY Oral , Taking Amantadine HCl 100 MG Capsule Oral , Taking amLODIPine Besylate 10 MG Tablet TAKE ONE TABLET BY MOUTH EVERY DAY Oral , Unknown Cephalexin 500 MG Capsule Oral , Unknown Metoprolol Succinate ER 50 MG Tablet Extended Release 24 Hour Oral , Unknown Farxiga 5 MG Tablet Oral , Unknown Melatonin 10 MG Tablet Oral * Allergies: B miky Aspirin, Dilaudid, Ciprofloxacin, Codeine, Morphine, Penicillin. Objective: * Vitals: H t: 5 ft 4 in, Wt:170 lbs, BMI:29.18, Shoe size: 8, Ht-cm: 162.56 cm, Wt-k.11 kg. Assessment: Plan: * Treatment: * Images: * The named appointment provid er may or may not be the originator of this progress note, and it is not deemed complete until electronically signed by the appointment provider. Sign off status: Pending * Provider: Gabo Lewis DPM Date: 0 08/03/2024 Generated for Tian cage/Giancarlo/Karen on: 12:56 PM EDT
--- NOTE | 2025-08-23 11:11 | HO.NEPHOV_ITS ---
Vital Signs 08/23/25 11:22 Height 5 ft 4 in Weight 209 lb 8 oz BMI 36.0 BP 130/82 Blood Pressure Location Lt brachial Position Sitting Pulse 98 Pulse Source Pulse Oximeter Pulse Oximetry (%) 96 Oxygen Delivery Method Room Air Intake Visit Reasons: 6 Months Eating Disorder Specialist Required: No Accompanied by: Self / Same As Patient Allergies ciprofloxacin (CIPROFLOXACIN) Allergy (Severe, Verified 08/23/25 11:22) SEIZURE hydromorphone (HYDROMORPHONE) Allergy (Intermediate, Verified 08/23/25 11:22) SWELLING HANDS,THROAT aspirin (ASPIRIN) Allergy (Mild, Verified 08/23/25 11:22) NAUSEA,BLEEDING mesalamine (From Asacol) Allergy (Mild, Verified 08/23/25 11:22) HIVES morphine (Morphine) Allergy (Mild, Verified 08/23/25 11:22) HIVES Penicillins Allergy (Mild, Verified 08/23/25 11:22) HIVES codeine Allergy (Verified 08/23/25 11:22) Unknown Opioids - Morphine Analogues Allergy (Verified 08/23/25 11:22) Unknown HPI Comments Details: Heidi was seen in follow-up of her chronic kidney disease and hypertension. She has a diabetic with history of hypertension. She is on Farxiga. He is not on any KELVIN inhibitor or ARB. She is known to have proteinuria. She does not have any coronary artery disease, CVA, congestive heart failure, renal artery stenosis or peripheral arterial disease. She denies any joint swellings, epistaxis, skin rashes, hematuria, edema or orthostatic symptoms. She avoids nonsteroidal anti-inflammatories and maintain good hydration. Her serum cre atinine has been fairly stable [facility] Medical History (Updated 06/01/24 @ 13:15 by Zackary Guido MD) Hypertension Chronic kidney disease, stage 3a Surgical History Hx of appendectomy Family History Mother Diabetes Social History Alcohol intake: never Patient Tobacco Use Status: Former Tobacco user Review of Systems Const All systems reviewed & are unremarkable except as noted in HPI and below Physical Exam Const General: comfortable and no acute distress Orientation/consciousness: patient oriented x3 HEENT Head: Yes normocephalic Mouth: Normal oral and palatal mucosa present Eyes EOM: EOMs intact bilaterally Neck Neck: Yes supple Resp Auscultation: clear to auscultation bilaterally Cardio Jugular venous distension: no JVD Rate: regular rate GI Palpation (GI): Soft to palpation Auscultation: normal bowel sounds General: Yes no CVA tenderness Back/Spine/Pelvis Back: no CVA tenderness Skin General skin exam: no rashes or lesions noted Neuro General: patient oriented x3 and moves all extremities Extrem General: Yes no pedal edema Results Reviewed Nephrology Results: Sodium, (135-145) 142 mmol/L 08/18/25 Potassium, (3.3-5.1) 4.9 mmol/L 08/18/25 Chloride, (96-108) 113 mmol/L H 08/18/25 Carbon Dioxide, (22-29) 18 mmol/L L 08/18/25 BUN, (9-16) 22 mg/dL H 08/18/25 Creatinine, (0.5-1.4) 1.79 mg/dL H 08/18/25 Calcium, (8.4-10.2) 8.4 mg/dL Δ 08/18/25 PTH Intact, (8.7-77.1) 330.7 pg/mL H 08/18/25 Assessment & Plan Assessment & Plan (1) Stage 3b chronic kidney disease: Code(s): N18.32 - Chronic kidney disease, stage 3b Category: Medical (2) Proteinuria: Code(s): R80.9 - Proteinuria, unspecified Category: Medical Qualifiers: Proteinuria type: other Qualified Code(s): R80.8 - Other proteinuria (3) Hypertension: Code(s): I10 - Essential (primary) hypertension Category: Medical Qualifiers: Hypertension type: primary hypertension Qualified Code(s): I10 - Essential (primary) hypertension (4) Secondary hyperparathyroidism (of renal origin): Code(s): N25.81 - Secondary hyperparathyroidism of renal origin Category: Medical Plan Heidi has progressive renal dysfunction with her current serum creatinine qualify her for stage III B CKD. She is not on any KELVIN inhibitor or ARB. Her blood pressure is at goal on current medications. She avoids nonsteroidal anti- inflammatories. She is tolerating Farxiga. She never had a renal biopsy about which she always had been resistant. She should continue calcitriol 0.25 mcg three times a week. She may need NaHCO3. I did not make any other medication changes today. She was encouraged to maintain good hydration and avoid nonsteroidal inflammatories. All questions answered. Follow-up appointment given Orders: Orders Parathyroid Hormone Intact 6 Months I10 - Essential (primary) hypertension, N18.32 - Chronic kidney disease, stage 3b, N25.81 - Secondary hyperparathyroidism of renal origin, R80.8 - Other proteinuria Vitamin D 25-OH Total 6 Months I10 - Essential (primary) hypertension, N18.32 - Chronic kidney disease, stage 3b, N25.81 - Secondary hyperparathyroidism of renal origin, R80.8 - Other proteinuria Calcium 6 Months I10 - Essential (primary) hypertension, N18.32 - Chronic kidney disease, stage 3b, N25.81 - Secondary hyperparathyroidism of renal origin, R80.8 - Other proteinuria Electrolytes 6 Months I10 - Essential (primary) hypertension, N18.32 - Chronic kidney disease, stage 3b, N25.81 - Secondary hyperparathyroidism of renal origin, R80.8 - Other proteinuria Blood Urea Nitrogen 6 Months I10 - Essential (primary) hypertension, N18.32 - Chronic kidney disease, stage 3b, N25.81 - Secondary hyperparathyroidism of renal origin, R80.8 - Other proteinuria Complete Blood Count Auto Diff 6 Months I10 - Essential (primary) hypertension, N18.32 - Chronic kidney disease, stage 3b, N25.81 - Secondary hyperparathyroidism of renal origin, R80.8 - Other proteinuria Phosphorus 6 Months I10 - Essential (primary) hypertension, N18.32 - Chronic kidney disease, stage 3b, N25.81 - Secondary hyperparathyroidism of renal origin, R80.8 - Other proteinuria Creatinine 6 Months I10 - Essential (primary) hypertension, N18.32 - Chronic kidney disease, stage 3b, N25.81 - Secondary hyperparathyroidism of renal origin, R80.8 - Other proteinuria IRON PROFILE 6 Months I10 - Essential (primary) hypertension, N18.32 - Chronic kidney disease, stage 3b, N25.81 - Secondary hyperparathyroidism of renal origin, R80.8 - Other proteinuria Ferritin 6 Months I10 - Essential (primary) hypertension, N18.32 - Chronic kidney disease, stage 3b, N25.81 - Secondary hyperparathyroidism of renal origin, R80.8 - Other proteinuria Coding Level of Care Code Est Pt Level 4 (04310) Diagnoses Stage 3b chronic kidney disease N18.32 Other proteinuria R80.8 Proteinuria type: other Primary hypertension I10 Hypertension type: primary hypertension Secondary hyperparathyroidism (of renal origin) N25.81
[2025-08-23 11:22] VITALS: BP 130/82; PULSE 98; O2SAT 96; BMI 36.0
--- OUTSIDE RECORDS SUMMARY | 2025-08-23 12:56 | XMS_ITS | Clinical Summary ---
Author Organization [facility] Address [address] [facility] [address] [place] [address] Phone Care Team Providers Care Dealer Support Technician Name Role Phone Keily Samuel MD Primary Care Provider [phone] Allergies Active Allergy Reactions Criticality Noted Date [...] AND IN THE EVENING 3 Active Creon 6000-69384 units capsule TAKE THREE CAPSULES BY MOUTH [...] Diabetes: Hemoglobin A1C 02/01/2025 11/03/2024 Influenza Vaccine (#1) 2025 5, 11/18/2023 Hepatitis B Vaccine Aged Out No longe r eligible based on patient's age to complete this [place] [address] ([id number]) [place] [phone] [place] [address] ([id number]) [place] [id number] Care Teams Dealer Support Technician Relationship Specialty Start Date End Date Keily Samuel MD [address], [place] PCP - General 11/20/20
--- OUTSIDE RECORDS SUMMARY | 2025-08-23 12:56 | XMS_ITS | Patient Health Record ---
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) Active confirmed Major Problem Hyperlipidemia (00904270) Other and unspecified hyperlipidemia (272.4) Active confirmed Major Problem Essential hypertension (93611660) Unspecified essential hypertension (401.9) Active confirmed Major Problem Asthma (disorder) (451913757) Asthma, unspecified, unspecified status (493.90) Active confirmed Major Problem Menopausal symptom (04838024) Symptomatic menopausal or female climacteric states (627.2) Active confirmed Major Problem Gynecological examination normal (513738507487595) Routine gynecological examination (V72.31) Active confirmed Major Problem Screening for malignant neoplasm of colon (231251212) Special screening for malignant neoplasms, colon (V76.51) Active confirmed Major Plan Of Treatment No Information Insurance Providers Payer Name Payer Address Payer Phone Subscriber Number Group Number Insured Name Patient Relationship to Insured Coverage Start Date Coverage End Date MEDICARE [address] [facility], [place] [id number] KIAH, RUTH Self - patient is the insured
--- OUTSIDE RECORDS SUMMARY | 2025-08-23 12:57 | XMS_ITS | Clinical Summary ---
Author Organization [facility] Address [address] [place] [address] Phone Care Team Providers Care Clinical Researcher Name Role Phone Physician, Pcp Unknown Primary [...] Date Cerebrovascular accident (CV A), unspecified mechanism ([facility] V24, [facility] V28) 11/06/2024 TIA (transient ischemic attack) 11/03/2024 11/09/2024 Medical History Medical History Date Comments HTN (hypertension) DM (diabetes mellitus) ([facility] V24, [facility] V28 ) Hyperlipidemia Asthma Asthma Depression Social History Tobacco Use Types Packs/Day Years Used Date Smoking Tobacco: Never Smokeless Tobacco: Current Tobacco Cessation:Ready to Q uit: Not Asked; Counseling Given: Not Answered Alcohol Use Standard Drinks/Week Comments Never 0 (1 standard drink = 0.6 oz pur e alcohol) Interpersonal Safety Answer Date Record ed Physical Abuse Unrecognized value 11/04/2024 Verbal Abuse Unrecognized value 11/04/2024 Comments Unknown Sex and Gender Information Value Date Recorded Sex Assigned at Not on file Legal Sex Female 8:37 PM EST Gender Identity Not on file Sexual Orientation Not on file Obstetrics History Last Filed Vital Signs Vital Sign Reading Time Taken Comments Blood Pressure 159/87 11/09/2024 8:12 AM EST Pulse 83 11/09/2024 8:12 AM EST Temperature 36.3 C (97.3 F) 11/09/2024 8:12 AM EST Respiratory Rate 15 11/09/2024 8:12 AM EST Oxygen Saturation 97% 11/09/2024 8:12 AM EST Inhaled Oxygen Concentration - - Weight 77.1 kg (170 lb) 11/03/2024 1:52 PM EST Height 162.6 cm (5' 4 ) 11/03/2024 1:52 PM EST Body Mass Index 29.18 11/03/2024 1:52 PM EST Plan of Treatment Health Maintenance Due Date Last Done Comments Breast Cancer Screening 1961 Colorectal Cancer Screening: Colonoscopy 1961 Diabetes: Annual Foot Exam 1971 Diabetes: Annual Retina Eye Exam 1971 Hepatitis A Vaccines (1 of 2 - Risk 2-dose series) 1980 Pneumococcal Vaccine: 50+ Years (1 of 2 - PCV) 1980 Cervical Cancer Screening: Pap Smear 1982 RSV Immunization Adult Patients (1 - Risk 50-74 years 1-dose series) 2011 Zoster Vaccines (1 of 2) 2011 HIV Screening 10/12/2022 Hepatitis C Screening 10/12/2022 Medicare Annual Wellness Visit 10/12/2022 Social Influencers of Health Screening 10/12/2022 Diabetes: Annual Urine Albumin-Creatinine Ratio (uACR) 11/03/2024 Depression Screening 11/10/2024 Diabetes: Blood Sugar Control Test (HGBA1C) 05/04/2025 11/03/2024 COVID-19 Vaccine ( season) 2025 11/09/2021, 03/24/2021, 03/03/2021 Influenza Vaccine (#1) 2025 , 09/17/2022, 10/23/2021, Additional history exists Diabetes: Annual [...] mmol/L LAB CHEMISTRY METHOD 11/22/2024 3:01 PM EST [facility] Potassium 4.4 3.5 - 5.5 mmol/L LAB CHEMISTRY METHOD 11/22/2024 3:01 PM EST [facility] Chloride 112(H) 96 - 110 mmol/L LAB CHEMISTRY METHOD 11/22/2024 3:01 PM [facility] CO2 22 21 - 32 mmol/L LAB CHEMISTRY METHOD 11/22/2024 3:01 PM [facility] Anion Gap 6 3 - 11 LAB CHEMISTRY METHOD 11/22/2024 3:01 PM [facility] Glucose 182(H) 70 - 100 mg/dL LAB CHEMISTRY METHOD 11/22/2024 3:01 PM [facility] BUN 33(H) 5 - 25 mg/dL LAB CHEMISTRY METHOD 11/22/2024 3:01 PM [facility] Creatinine 1.99(H) 0.50 - 1.10 mg/dL LAB CHEMISTRY METHOD 11/22/2024 3:01 PM [facility] eGFR 28(L) >=60 mL/min/1. 73m2 LAB CHEMISTRY METHOD 11/22/2024 3:01 PM [facility] Comment:Calculation based on the Chronic Kidney Disease Epidemiology Collaboration (CKD-EPI) equation refit without adjustment for race. BUN/Creatinine Ratio 16.6 LAB CHEMISTRY METHOD 11/22/2024 3:01 PM [facility] Calcium 7.8(L) 8.5 - 10.5 mg/dL LAB CHEMISTRY METHOD 11/22/2024 3:01 PM [facility] Blood Venous blood specimen / Unknown Venipuncture / Unknown 11/22/2024 6:48 AM EST 11/22/2024 10:18 AM EST us Winsome Asher MD LAB BLOOD ORDERABLES Final Resul t [facility] [address] [place] [address], * (ABNORMAL) Lipid panel with reflex to direct LDL (11/03/2024 2:15 PM EST) Cholesterol 172 0 - 200 mg/dL LAB CHEMISTRY METHOD 11/03/2024 7:42 PM EST [facility] Triglycerides 320(H) 0 - 150 mg/dL LAB CHEMISTRY METHOD 11/03/2024 7:42 PM EST [facility] HDL 41 >=40 mg/dL LAB CHEMISTRY METHOD 11/03/2024 7:42 PM [facility] LDL Calculated 67 0 - 100 mg/dL LAB CHEMISTRY METHOD 11/03/2024 7:42 PM EST [facility] VLDL Cholesterol Jhon 64 mg/dL LAB CHEMISTRY METHOD 11/03/2024 7:42 PM [facility] Non HDL Chol. (LDL+VLDL) 131 <145 mg/dL LAB CHEMISTRY METHOD 11/03/2024 7:42 PM [facility] Chol/HDL Ratio 4.2 0.0 - 4.4 LAB CHEMISTRY METHOD 11/03/2024 7:42 PM [facility] Blood Venous blood specimen / Unknown Venipuncture / Unknown 11/03/2024 2:15 PM EST 11/03/2024 2:51 PM EST us Alexander Haque DO LAB BLOOD ORDERABLES Final R esult [facility] [address] [place] [address], [place] [phone] * (ABNORMAL) Hemoglobin A1c (11/03/2024 2:15 PM EST) Hemoglobin A1C 12.4(H) <6.5 % LAB CHEMISTRY METHOD 11/04/2024 2:10 PM EST [facility] Mean Bld Glu Estim. 309 mg/dL LAB CHEMISTRY METHOD 11/04/2024 2:10 PM EST [facility] Blood Venous blood specimen / Unknown Venipuncture / Unknown 11/03/2024 2:15 PM EST 11/03/2024 2:51 PM EST us Mando GE LAB BLOOD ORDERABLES Damaris l Result [facility] [address] [place] [address], from Last 3 Months or Most Recently Relevant to Health Maintenance Insurance [employer] MEDICARE Member Subscriber Plan / Payer (Ef fective 2019-Present) Name:Heidi Latif Relation to Subscriber:Self Name:Heidi Latif Payer ID:[id number] Group ID:[id number] Type:Not on file Address: [place] [address] [place] [phone] Advance Directives Documents on File Type Date Recorded Patient Nursing Education Specialist Expl anation Health Care Decision (hx) 07/22/2016 [...] Agents on File Name Relationship Healthcare Agent Relationsin p Communication Anjum Villarreal Spouse Health Care Agent Care Teams Clinical Researcher Relationship Specialty Start Date End Date Physician, Pcp Unknown PCP - General 11/03/24
--- OUTSIDE RECORDS SUMMARY | 2025-08-23 12:57 | XMS_ITS | Encounter Summary ---
Author Organization [facility] Address [address] [place] [address] Care Team Providers Care Reel System Operator Name Role Phone Physician, Pcp Unknown Primary Care Provider Jeaneth vailable Encounter Details Date Type Department Care Team (Late st Contact Info) Description 11/26/2024 Lab Requisition [facility] - Main Lab [address] [facility] [place] [address] Winsome Asher MD [address] [place] [address] Cerebral infarction, unspecified (CMS/HCC V24, CMS/HCC V28) [...] V28) documented in this encounter Care Teams Reel System Operator Relationship Specialty Start Date End Date Physician, Pcp Unknown PCP - General 11/03/24 documented as of this encounter
--- OUTSIDE RECORDS SUMMARY | 2025-08-23 12:57 | XMS_ITS | Encounter Summary ---
Author Organization [facility] Address [address] [place] [address] Care Team Providers Care Color Maker Name Role Phone Physician, Pcp Unknown Primary Care Provider Jeaneth vailable Encounter Details Date Type Department Care Team (Latest Contact Info) Description 11/11/[address] [facility] - Main Lab [address] [facility] [place] [address] Winsome Asher MD [address] [place] [address] Other cerebrovascular disease Social History Tobacco Use [...] mmol/L LAB CHEMISTRY METHOD 11/11/2024 8:52 AM [facility] Potassium 4.8 3.5 - 5.5 mmol/L LAB CHEMISTRY METHOD 11/11/2024 8:52 AM [facility] Chloride 113(H) 96 - 110 mmol/L LAB CHEMISTRY METHOD 11/11/2024 8:52 AM [facility] CO2 24 21 - 32 mmol/L LAB CHEMISTRY METHOD 11/11/2024 8:52 AM [facility] Anion Gap 3 3 - 11 LAB CHEMISTRY METHOD 11/11/2024 8:52 AM [facility] Glucose 95 70 - 100 mg/dL LAB CHEMISTRY METHOD 11/11/2024 8:52 AM [facility] BUN 25 5 - 25 mg/dL LAB CHEMISTRY METHOD 11/11/2024 8:52 AM [facility] Creatinine 1.64(H) 0.50 - 1.10 mg/dL LAB CHEMISTRY METHOD 11/11/2024 8:52 AM [facility] eGFR 35(L) >=60 mL/min/1. 73m2 LAB CHEMISTRY METHOD 11/11/2024 8:52 AM [facility] Comment:Calculation based on the Chronic Kidney Disease Epidemiology Collaboration (CKD-EPI) equation refit without adjustment for race. BUN/Creatinine Ratio 15.2 LAB CHEMISTRY METHOD 11/11/2024 8:52 AM [facility] Calcium 8.0(L) 8.5 - 10.5 mg/dL LAB CHEMISTRY METHOD 11/11/2024 8:52 AM [facility] Blood Venous blood specimen / Unknown Venipuncture / Unknown 11/11/2024 6:29 AM EST 11/11/2024 8:17 AM EST us Winsome Asher MD LAB BLOOD ORDERABLES Final Resul t [facility] [address] [place] [address], * (ABNORMAL) Complete blood count (11/11/2024 6:29 AM EST) [facility] Signature WBC 5.7 4.8 - 10.8 K/mcL LAB HEMETOLOGY METHOD 11/11/2024 8:30 AM EST [facility] RBC 3.20(L) 3.80 - 4.80 M/mcL LAB HEMETOLOGY METHOD 11/11/2024 8:30 AM [facility] Hemoglobin 9.6(L) 11.5 - 16.0 g/dL LAB HEMETOLOGY METHOD 11/11/2024 8:30 AM [facility] Hematocrit 29.8(L) 35.0 - 47.0 % LAB HEMETOLOGY METHOD 11/11/2024 8:30 AM [facility] MCV 94.3 79.0 - 98.0 FL LAB HEMETOLOGY METHOD 11/11/2024 8:30 AM [facility] MCH 30.4 27.0 - 32.0 pcg LAB HEMETOLOGY METHOD 11/11/2024 8:30 AM [facility] MCHC 32.2 32.0 - 37.0 g/dL LAB HEMETOLOGY METHOD 11/11/2024 8:30 AM [facility] RDW 13.4 11.0 - 15.0 % LAB HEMETOLOGY METHOD 11/11/2024 8:30 AM [facility] Platelets 157 130 - 400 K/mcL LAB HEMETOLOGY METHOD 11/11/2024 8:30 AM [facility] MPV 12.6(H) 7.0 - 11.0 FL LAB HEMETOLOGY METHOD 11/11/2024 8:30 AM [facility] NRBC 0.4 <1.0 % LAB HEMETOLOGY METHOD 11/11/2024 8:30 AM EST [facility] NRBC Absolute 0.02 <0.10 K/mcL LAB HEMETOLOGY METHOD 11/11/2024 8:30 AM EST [facility] Blood Venous blood specimen / Unknown Venipuncture / Unknown 11/11/2024 6:29 AM EST 11/11/2024 8:17 AM EST us Winsome Asher MD LAB BLOOD ORDERABLES Final Resul t [facility] [address] [place] [address], documented in this encounter Visit Diagnoses Diagnosis Other cerebrovascular disease documented in this encounter Care Teams Color Maker Relationship Specialty Start Date End Date Physician, Pcp Unknown PCP - General 11/03/24 documented as of this encounter
--- OUTSIDE RECORDS SUMMARY | 2025-08-23 12:57 | XMS_ITS | Encounter Summary ---
Author Organization [employer] Address [address] [place] [address] Care Team Providers Care Bi Consultant Name Role Phone Physician, Pcp Unknown Primary Care Provider Jeaneth vailable Encounter Details Date Type Department Care Team (Late st Contact Info) Description 11/19/2024 Lab Requisition [facility] - Main Lab [address] [facility] [place] [id number] Winsome Asher MD [address] [place] [address] Cerebral infarction, unspecified (CMS/HCC V24, CMS/HCC V28) [...] mmol/L LAB CHEMISTRY METHOD 11/22/2024 3:01 PM [facility] Potassium 4.4 3.5 - 5.5 mmol/L LAB CHEMISTRY METHOD 11/22/2024 3:01 PM [facility] Chloride 112(H) 96 - 110 mmol/L LAB CHEMISTRY METHOD 11/22/2024 3:01 PM [facility] CO2 22 21 - 32 mmol/L LAB CHEMISTRY METHOD 11/22/2024 3:01 PM [facility] Anion Gap 6 3 - 11 LAB CHEMISTRY METHOD 11/22/2024 3:01 PM [facility] Glucose 182(H) 70 - 100 mg/dL LAB CHEMISTRY METHOD 11/22/2024 3:01 PM [facility] BUN 33(H) 5 - 25 mg/dL LAB CHEMISTRY METHOD 11/22/2024 3:01 PM [facility] Creatinine 1.99(H) 0.50 - 1.10 mg/dL LAB CHEMISTRY METHOD 11/22/2024 3:01 PM [facility] eGFR 28(L) >=60 mL/min/1. 73m2 LAB CHEMISTRY METHOD 11/22/2024 3:01 PM [facility] Comment:Calculation based on the Chronic Kidney Disease Epidemiology Collaboration (CKD-EPI) equation refit without adjustment for race. BUN/Creatinine Ratio 16.6 LAB CHEMISTRY METHOD 11/22/2024 3:01 PM [facility] Calcium 7.8(L) 8.5 - 10.5 mg/dL LAB CHEMISTRY METHOD 11/22/2024 3:01 PM [facility] Blood Venous blood specimen / Unknown Venipuncture / Unknown 11/22/2024 6:48 AM EST 11/22/2024 10:18 AM EST us Winsome Asher MD LAB BLOOD ORDERABLES Final Resul t [facility] [address] [place] [address], [place] [phone] * (ABNORMAL) Complete blood count (11/22/2024 6:48 AM EST) WBC 5.2 4.8 - 10.8 K/mcL LAB HEMETOLOGY METHOD 11/22/2024 2:21 PM [facility] RBC 3.00(L) 3.80 - 4.80 M/mcL LAB HEMETOLOGY METHOD 11/22/2024 2:21 PM [facility] Hemoglobin 9.2(L) 11.5 - 16.0 g/dL LAB HEMETOLOGY METHOD 11/22/2024 2:21 PM [facility] Hematocrit 29.1(L) 35.0 - 47.0 % LAB HEMETOLOGY METHOD 11/22/2024 2:21 PM [facility] MCV 96.4 79.0 - 98.0 FL LAB HEMETOLOGY METHOD 11/22/2024 2:21 PM [facility] MCH 30.5 27.0 - 32.0 pcg LAB HEMETOLOGY METHOD 11/22/2024 2:21 PM [facility] MCHC 31.6(L) 32.0 - 37.0 g/dL LAB HEMETOLOGY METHOD 11/22/2024 2:21 PM [facility] RDW 14.0 11.0 - 15.0 % LAB HEMETOLOGY METHOD 11/22/2024 2:21 PM [facility] Platelets 155 130 - 400 K/mcL LAB HEMETOLOGY METHOD 11/22/2024 2:21 PM [facility] MPV 11.9(H) 7.0 - 11.0 FL LAB HEMETOLOGY METHOD 11/22/2024 2:21 PM EST [facility] NRBC 0.4 <1.0 % LAB HEMETOLOGY METHOD 11/22/2024 2:21 PM EST [facility] NRBC Absolute 0.02 <0.10 K/mcL LAB HEMETOLOGY METHOD 11/22/2024 2:21 PM EST [facility] Blood Venous blood specimen / Unknown Venipuncture / Unknown 11/22/2024 6:48 AM EST 11/22/2024 10:18 AM EST us Winsome Asher MD LAB BLOOD ORDERABLES Final Resul t [facility] [address] [place] [address], documented in this encounter Visit Diagnoses Diagnosis Cerebral infarction, unspecified (CMS/HCC V24, CMS/HCC V28) documented in this encounter Care Teams Bi Consultant Relationship Specialty Start Date End Date Physician, Pcp Unknown PCP - General 11/03/24 documented as of this encounter
--- OUTSIDE RECORDS SUMMARY | 2025-08-23 12:57 | XMS_ITS | Patient Health Record ---
[facility] Address [address] [place] [address] Care Team Providers Care Barometers Calibrator Name Role Phone Keily Samuel MD Primary Care Provider UnavailRikki Montenegro Unavailable [phone] Allergies Allergen (clinical drug ingredient) Drug/Non Drug [...] OUTH EVERY DAY Oral; Duration: 30 Active amLODIPine Besylate 10 MG TAKE ONE TABLE T BY MOUTH EVERY DAY Oral; Duration: 30 Active Omeprazole 20 MG TAKE ONE CAPSULE BY MOUTH EVERY DAY Oral; Duration: 30 Active risperiDONE 2 MG TAKE ONE TABLET BY M OUTH TWICE A DAY Oral; Duration: 30 Active Tradjenta 5 MG TAKE ONE TABLET BY M OUTH EVERY DAY Oral; Duration: 30 Active Amantadine HCl 100 MG Oral; Duration: 60 Active Atorvastatin Calcium 40 MG TAKE ONE TABL ET BY MOUTH EVERY DAY Oral; Duration: 30 Active Farxiga 5 MG Oral; Duration: 30 Unknown Mirtazapine 7.5 MG TAKE ONE TABLET BY M OUTH EVERY DAY AT BEDTIME Oral; Duration: 30 Active Melatonin 10 MG Oral; Duration: 30 Unknown Cephalexin 500 MG Oral; Duration: 10 Unknown Albuterol Sulfate HFA 108 (90 Base) MCG/ACT 1 puff as needed Inhalation every 4 hrs Active Metoprolol Succinate ER 50 MG Oral; Duration: 90 Unknown Creon [id number] UNIT Oral; Duration: 30 Active Vitamin B-1 100 MG TAKE ONE TABLET BY M OUTH EVERY DAY Oral; Duration: 30 Active Folic Acid 1 MG Oral; Duration: 30 Active traZODone HCl 150 MG TAKE 1-2 TABLETS BY MOUTH AT BEDTIME, NEEDED FOR INSOMNIA Oral; Duration: 30 Active Metoprolol Tartrate 50 MG Oral; Duration: 90 Active Gabapentin 300 MG TAKE ONE CAPSULE BY MOUTH TWICE A DAY Oral; Duration: 30 Active Social History [...] ast year? No Points 0 Interpretation Negative Plan Of Treatment No Information Insurance Providers Payer Name Payer Address Payer Phone Subscriber Number Group Number Insured Name Patient Relationship to Insured Coverage Start Date Coverage End Date [facility] [employer] Claims [address] [place] [id number] Heidi Latif Self - patient is the insured Medical (General) History Medical History History ICD Code asthma Diabetic Hiatal hernia Kidney disease Psychiatric disorder Measles
--- OUTSIDE RECORDS SUMMARY | 2025-08-23 12:57 | XMS_ITS | Encounter Summary ---
Author Organization [employer] Address [address] [place] [address] Care Team Providers Care Bottle Label Inspector Name Role Phone Physician, Pcp Unknown Primary Care Provider Jeaneth vailable Encounter Details Date Type Department Care Team (Late st Contact Info) Description 11/15/2024 Lab Requisition [facility] - Main Lab [address] [facility] [place] [phone] Winsome Asher MD [address] [place] [address] Cerebral infarction, unspecified (CMS/HCC V24, CMS/HCC V28) [...] mmol/L LAB CHEMISTRY METHOD 11/15/2024 2:57 PM [facility] Potassium 4.5 3.5 - 5.5 mmol/L LAB CHEMISTRY METHOD 11/15/2024 2:57 PM [facility] Chloride 113(H) 96 - 110 mmol/L LAB CHEMISTRY METHOD 11/15/2024 2:57 PM [facility] CO2 22 21 - 32 mmol/L LAB CHEMISTRY METHOD 11/15/2024 2:57 PM [facility] Anion Gap 5 3 - 11 LAB CHEMISTRY METHOD 11/15/2024 2:57 PM [facility] Glucose 146(H) 70 - 100 mg/dL LAB CHEMISTRY METHOD 11/15/2024 2:57 PM [facility] BUN 27(H) 5 - 25 mg/dL LAB CHEMISTRY METHOD 11/15/2024 2:57 PM [facility] Creatinine 1.59(H) 0.50 - 1.10 mg/dL LAB CHEMISTRY METHOD 11/15/2024 2:57 PM [facility] eGFR 36(L) >=60 mL/min/1. 73m2 LAB CHEMISTRY METHOD 11/15/2024 2:57 PM [facility] Comment:Calculation based on the Chronic Kidney Disease Epidemiology Collaboration (CKD-EPI) equation refit without adjustment for race. BUN/Creatinine Ratio 17.0 LAB CHEMISTRY METHOD 11/15/2024 2:57 PM [facility] Calcium 8.2(L) 8.5 - 10.5 mg/dL LAB CHEMISTRY METHOD 11/15/2024 2:57 PM [facility] Blood Venous blood specimen / Unknown 11/15/2024 9:13 AM EST 11/15/2024 1:07 PM EST us Winsome Asher MD LAB BLOOD ORDERABLES Final Resul t [facility] [address] [place] [address], * (ABNORMAL) Complete blood count (11/15/2024 9:13 AM EST) WBC 4.6(L) 4.8 - 10.8 K/mcL LAB HEMETOLOGY METHOD 11/15/2024 2:10 PM EST [facility] RBC 3.10(L) 3.80 - 4.80 M/mcL LAB HEMETOLOGY METHOD 11/15/2024 2:10 PM EST [facility] Hemoglobin 9.4(L) 11.5 - 16.0 g/dL LAB HEMETOLOGY METHOD 11/15/2024 2:10 PM [facility] Hematocrit 29.6(L) 35.0 - 47.0 % LAB HEMETOLOGY METHOD 11/15/2024 2:10 PM EST [facility] MCV 94.9 79.0 - 98.0 FL LAB HEMETOLOGY METHOD 11/15/2024 2:10 PM EST [facility] MCH 30.1 27.0 - 32.0 pcg LAB HEMETOLOGY METHOD 11/15/2024 2:10 PM EST [facility] MCHC 31.8(L) 32.0 - 37.0 g/dL LAB HEMETOLOGY METHOD 11/15/2024 2:10 PM EST [facility] RDW 13.7 11.0 - 15.0 % LAB HEMETOLOGY METHOD 11/15/2024 2:10 PM [facility] Platelets 174 130 - 400 K/mcL LAB HEMETOLOGY METHOD 11/15/2024 2:10 PM [facility] MPV 12.8(H) 7.0 - 11.0 FL LAB HEMETOLOGY METHOD 11/15/2024 2:10 PM EST [facility] NRBC 0.0 <1.0 % LAB HEMETOLOGY METHOD 11/15/2024 2:10 PM EST [facility] NRBC Absolute 0.00 <0.10 K/mcL LAB HEMETOLOGY METHOD 11/15/2024 2:10 PM EST [facility] Blood Venous blood specimen / Unknown Venipuncture / Unknown 11/15/2024 9:13 AM EST 11/15/2024 1:07 PM EST us Winsome Asher MD LAB BLOOD ORDERABLES Final Resul t [facility] [address] [place] [address], documented in this encounter Visit Diagnoses Diagnosis Cerebral infarction, unspecified (CMS/HCC V24, CMS/HCC V28) documented in this encounter Care Teams Bottle Label Inspector Relationship Specialty Start Date End Date Physician, Pcp Unknown PCP - General 11/03/24 documented as of this encounter
== END 2025-08-23 11:39 | disposition home or self-care (01) ==
LOC: HO.HKAS 10:50
PROVIDERS: PCP Internal Medicine; Visit Provider Internal Medicine Nephrology
DX: N18.32 Chronic kidney disease, stage 3b (principal); R80.8 Other proteinuria; I10 Essential (primary) hypertension; N25.81 Secondary hyperparathyroidism of renal origin
CPT/HCPCS: 99214

== ENCOUNTER → 2025-08-23 10:49 | Outpatient (BNVA) | payer OTHER, SELFPAY | PROVIDERS: PCP Internal Medicine; Visit Provider Internal Medicine Nephrology | DX: N18.32 Chronic kidney disease, stage 3b (principal); I10 Essential (primary) hypertension; N25.81 Secondary hyperparathyroidism of renal origin; R80.8 Other proteinuria | CPT/HCPCS: 99212 ==